=== PATIENT | male | born 1955 ===

== ENCOUNTER 2018-07-05 14:06 | Inpatient (IN) | payer SELFPAY ==
--- NOTE | 2018-07-05 15:22 | ED PDOC ---
HPI: CCC, URI, Sore Throat Time Seen by Provider: 07/05/18 15:07 Chief Complaint (Nursing): Shortness Of Breath Chief Complaint (Provider): Sore throat History Per: Patient, Family, Supervisor [employer] (Son (preferrred)) History/Exam Limitations: no limitations Additional Complaint(s): Pt reports sore throat X 10 days, associated with SOB when standing, was given ? medication for 10 days by PMD without relief. Denies CP, fever, cough, palpitations. PMD: Dr. Weber Past Medical History Reviewed: Nursing Documentation, Vital Signs Vital Signs: Last Vital Signs Temp 98.7 F 07/05/18 14:26 Pulse 95 H 07/05/18 15:12 Resp 20 07/05/18 15:12 BP 120/64 07/05/18 15:12 Pulse Ox 100 07/05/18 15:15 - Medical History PMH: No Chronic Diseases - Family History Family History: States: Unknown Family Hx - Living Arrangements Living Arrangements: With Family - Social History Current smoker - smoking cessation education provided: No Alcohol: None - Allergies Allergies/Adverse Reactions: Allergies Allergy/AdvReac Type Severity Reaction Status Date / Time No Known Allergies Allergy Verified 07/05/18 14:26 Review of Systems Constitutional: Negative for: Fever, Chills ENT: Positive for: Throat Pain. Negative for: Throat Swelling Cardiovascular: Negative for: Chest Pain, Palpitations Respiratory: Positive for: Shortness of Breath. Negative for: Cough Gastrointestinal: Negative for: Nausea, Vomiting, Abdominal Pain, Diarrhea Skin: Negative for: Rash, Lesions Neurological: Negative for: Headache, Dizziness Physical Exam - Reviewed Nursing Documentation Reviewed: Yes Vital Signs Reviewed: Yes - Physical Exam Appears: Positive for: Well, No Acute Distress (Speaking full sentences) Head Exam: Positive for: ATRAUMATIC, NORMAL INSPECTION Skin: Positive for: Warm, Dry, Pallor Eye Exam: Positive for: Normal appearance, EOMI, PERRL ENT: Positive for: Pharynx Is (Clear). Negative for: Sinus Pain/Drainage, Pharyngeal Erythema, Tonsillar Exudate, Tonsillar Swelling Neck: Positive for: Normal, Painless ROM, Supple Cardiovascular/Chest: Positive for: Regular Rate, Rhythm Respiratory: Positive for: Normal Breath Sounds. Negative for: Rales, Rhonchi, Wheezing Gastrointestinal/Abdominal: Positive for: Normal Exam Back: Positive for: Normal Inspection Rectal: Positive for: Stool Is Heme: (Pending), Other (Welder Machine Operator: Espinoza Valdez). Negative for: Black Stool, Blood Streaked Stool, Hemorrhoids, Tenderness Extremity: Positive for: Normal ROM Neurological/Psych: Positive for: Awake, Alert, Oriented - Laboratory Results Result Diagrams: 07/07/18 05:00 07/07/18 06:31 - ECG Interpretation Of ECG: ST @ 102, TWI inferiorlaterally (no old EKG to compare). O2 Sat by Pulse Oximetry: 100 Pulse Ox Interpretation: Normal Medical Decision Making Medical Decision Makin yo male with sore throat and SOB. - labs - EKG - CXR Accession No. : [id number] Patient Name / ID : TATIANA MANTILLA / [id number] Exam Date : 07/05/2018 15:36:58 ( Approved ) Study Comment : Sex / Age : M / 62Y Creator : Tung López MD Dictator : Tung López MD Hvac Engineering Technician : Reducer : Tung López MD Approver2 : Report Date : 07/05/2018 16:09:15 My Comment : Date of service: 07/05/2018 HISTORY: SOB COMPARISON: No prior. TECHNIQUE: Chest PA and lateral views FINDINGS: LUNGS: No pulmonary infiltrate. There is a calcified granuloma in the mid lateral left hemithorax. PLEURA: There is blunting of the costophrenic sulcus bilaterally although the costophrenic angles appear clear. Probable small bilateral pleural effusion. No pneumothorax. CARDIOVASCULAR: No aortic atherosclerotic calcification present. Normal cardiac size. No pulmonary vascular congestion. OSSEOUS STRUCTURES: No significant abnormalities. VISUALIZED UPPER ABDOMEN: Normal. OTHER FINDINGS: None. IMPRESSION: Probable small bilateral pleural effusion. Incidental calcified old granuloma in left lung 17:25 Low Hb noted. Consent for blood transfusion obtained using [employer] trust manager assistant #[id number]. Pt states he has been having intermittent rectal bleeding, none at this time, denies abdominal pain. Stool guaiac obtained. Disposition - Clinical Impression Clinical Impression: Symptomatic anemia - Disposition Disposition Time: 19:44 Condition: STABLE - Pt Status Changed To: Hospital Disposition Of: Inpatient - Admit Certification Admit to Inpatient:: After my assessment, the patient will require hospitalization for at least two midnights. This is because of the severity of symptoms shown, intensity of services needed, and/or the medical risk in this patient being treated as an outpatient. - POA Present On Arrival: None
[2018-07-05 16:11] LABS: ALB/GLOB RATIO 1.3 (1.0-2.1); ALBUMIN 3.5 g/dL (3.5-5.0); ALT/SGPT 27 U/L (21-72); AST/SGOT 22 U/L (17-59); BLOOD UREA NITROGEN 18 mg/dl (9-20); CALCIUM 8.6 mg/dL (8.4-10.2); GFR NON-AFRICAN AMERICAN > 60
--- NOTE | 2018-07-05 16:12 | RAD ---
Date of service: 07/05/2018 HISTORY: SOB COMPARISON: No prior. TECHNIQUE: Chest PA and lateral views FINDINGS: LUNGS: No pulmonary infiltrate. There is a calcified granuloma in the mid lateral left hemithorax. PLEURA: There is blunting of the costophrenic sulcus bilaterally although the costophrenic angles appear clear. Probable small bilateral pleural effusion. No pneumothorax. CARDIOVASCULAR: No aortic atherosclerotic calcification present. Normal cardiac size. No pulmonary vascular congestion. OSSEOUS STRUCTURES: No significant abnormalities. VISUALIZED UPPER ABDOMEN: Normal. OTHER FINDINGS: None. IMPRESSION: Probable small bilateral pleural effusion. Incidental calcified old granuloma in left lung
[2018-07-05 16:41] LABS: PROTHROMBIN TIME 11.3 Seconds (9.8-13.1)
[2018-07-05 16:44] LABS: BASO % 0.3 % (0.0-2.0); LYMPH # 0.6 K/uL (1.0-4.3); MEAN CELL VOLUME 70.6 fl (80.0-94.0); MEAN CORPUSCULAR HEMOGLOBIN 21.1 pg (27.0-31.0); MEAN CORPUSCULAR HGB CONC 29.8 g/dL (33.0-37.0); MEAN PLATELET VOLUME 8.8 fl (7.2-11.7); MONO # 1.1 K/uL (0.0-0.8); NEUT # 10.8 K/uL (1.8-7.0); NEUT % 85.7 % (50.0-75.0); NRBC % 1.6 % (0.0-0.0); PLATELET COUNT 384 K/uL (130-400); RBC 2.06 Mil/uL (4.40-5.90); RED CELL DISTRIBUTION WIDTH 18.4 % (11.5-14.5); WHITE BLOOD COUNT 12.6 K/uL (4.8-10.8)
[2018-07-05 16:51] LABS: HEMOGLOBIN 4.3 g/dL (12.0-18.0)
[2018-07-05] MEDS ORDERED: Sodium Chloride 0.9% 50 ML IV ONE (18:15)
[2018-07-05] MEDS ORDERED: Iodixanol 320 mg/ml 50 ml Sol IV ONE (18:15)
[2018-07-05 18:27] LABS: B-TYPE NATRIURETIC PEPTIDE 103 pg/ml (0-900)
[2018-07-05 20:23] LABS: ANISOCYTOSIS MARKED; BANDS 4 % (0-2); LYMPHOCYTE 7 % (20-50); MICROCYTOSIS MODERATE; MONOCYTE 5 % (0-10); NEUTROPHIL 84 % (42-75); PLATELET ESTIMATE NORMAL (NORMAL); POIKILOCYTOSIS MARKED; TOTAL CELLS COUNTED 100
[2018-07-05 20:24] LABS: HYPOCHROMIC MODERATE; OVALOCYTES SLIGHT; POLYCHROMIC MODERATE; SCHISTOCYTES SLIGHT; TEARDROP CELLS SLIGHT
--- NOTE | 2018-07-05 21:10 | CP.PCM.HP ---
<Alicia Rm - Last Filed: 07/05/18 23:41> History of Present Illness - History of Present Illness History of Present Illness: This is 62 y/o M with PMH of HTN admitted to [facility] for evaluation and treatment of Acute symptomatic anemia and elevated D.dimer. Patient comes to the ED c/o 10 days history of sore throat, worsening dyspnea on exertion, weakness and dizziness. Patient reports on and off blood with stool, denies any palpitations, blurred vision, chest pain, abdominal pain, fever, hemoptysis, hematuria or urinary symptoms. Patient reports no sick contact or recent travel. [id number] PMH: HTN PSH: Denies ALlg: NKDA Meds: for HTN. Unknown SH: Social alcohol use, denies any smoking or illicit drug use FH: + colon cancer: mother, denies any heart disease or stroke ROS: As per HPI ER Course: Afebrile, HR 103, 139/73, RR 20, Spo2 97% CBC: 12.6>4.3/14.5<384 CMP: WNL D.dimer: 669 Negative influenza and strep CT abdo/pelvis: pending CT angio Chest: pending EKG: Sinus Tachy CXR: Prob small b/l pleural effusion Pending FOBT Present on Admission - Present on Admission Any Indicators Present on Admission: No History of DVT/PE: No History of Uncontrolled Diabetes: No Review of Systems - Constitutional Constitutional: absent: Fever, Headache, Night Sweats - EENT Eyes: absent: Blurred Vision Ears: absent: Decreased Hearing Nose/Mouth/Throat: Sore Throat - Cardiovascular Cardiovascular: Dyspnea on Exertion. absent: Chest Pain, Palpitations, Syncope - Respiratory Respiratory: Dyspnea on Exertion. absent: Cough, Hemoptysis, Wheezing - Genitourinary Genitourinary: absent: Hematuria, Urinary Incontinence - Musculoskeletal Musculoskeletal: absent: Abnormal Gait - Neurological Neurological: Dizziness. absent: Headaches, Syncope Past Patient History - Past Social History Alcohol: None - CARDIAC Hx Hypertension: Yes - PSYCHIATRIC Hx Substance Use: No - SURGICAL HISTORY Hx Surgeries: No Meds Allergies/Adverse Reactions: Allergies Allergy/AdvReac Type Severity Reaction Status Date / Time No Known Allergies Allergy Verified 07/05/18 14:26 Physical Exam - Constitutional Appears: No Acute Distress - Head Exam Head Exam: ATRAUMATIC, NORMAL INSPECTION, NORMOCEPHALIC - Eye Exam Eye Exam: EOMI, Normal appearance, PERRL. absent: Conjunctival injection, Nystagmus Pupil Exam: NORMAL ACCOMODATION, PERRL - ENT Exam ENT Exam: Mucous Membranes Moist - Neck Exam Neck exam: Positive for: Normal Inspection - Respiratory Exam Respiratory Exam: Clear to Auscultation Bilateral. absent: Accessory Muscle Use, Chest Wall Tenderness, Decreased Breath Sounds, Prolonged Expiratory Phase, Rales, Wheezes, Respiratory Distress, NORMAL BREATHING PATTERN - Cardiovascular Exam Cardiovascular Exam: Tachycardia, REGULAR RHYTHM, +S1, +S2 - GI/Abdominal Exam GI & Abdominal Exam: Normal Bowel Sounds, Soft. absent: Distended, Guarding, Rebound, Rigid, Tenderness - Rectal Exam Rectal Exam: NORMAL INSPECTION - Extremities Exam Extremities exam: Positive for: normal capillary refill, normal inspection. Negative for: tenderness - Back Exam Back exam: NORMAL INSPECTION. absent: CVA tenderness (L), CVA tenderness (R) - Neurological Exam Neurological exam: Alert, CN II-XII Intact, Oriented x3 - Psychiatric Exam Psychiatric exam: Normal Affect - Skin Skin Exam: Dry, Intact, Normal Color, Warm Results - Vital Signs Recent Vital Signs: Last Vital Signs Temp 98.4 F 07/05/18 20:45 Pulse 85 07/05/18 20:45 Resp 17 07/05/18 20:45 BP 130/75 07/05/18 20:45 Pulse Ox 100 07/05/18 20:45 - Labs Result Diagrams: 07/05/18 15:35 07/05/18 15:35 Labs: Laboratory Results - last 24 hr 07/05/18 07/05/18 07/05/18 15:35 15:35 15:35 WBC 12.6 H RBC 2.06 L Hgb 4.3 L* Hct 14.5 L MCV 70.6 L MCH 21.1 L MCHC 29.8 L RDW 18.4 H Plt Count 384 MPV 8.8 Neut % (Auto) 85.7 H Lymph % (Auto) 5.0 L York % (Auto) 9.0 Eos % (Auto) 0.0 Baso % (Auto) 0.3 Neut # (Auto) 10.8 H Lymph # (Auto) 0.6 L [place] # (Auto) 1.1 H Eos # (Auto) 0.0 Baso # (Auto) 0.0 Neutrophils % (Manual) 84 H Band Neutrophils % 4 H Lymphocytes % (Manual) 7 L Monocytes % (Manual) 5 Platelet Estimate Normal Polychromasia Moderate Hypochromasia (manual) Moderate Poikilocytosis (manual Marked Anisocytosis (manual) Marked Microcytosis (manual) Moderate Tear Drop Cells Slight Ovalocytes Slight Acanthocytes (Spur) Slight Schistocytes Slight PT INR APTT D-Dimer, Quantitative Sodium 136 Potassium 4.3 Chloride 104 Carbon Dioxide 24 Anion Gap 12 BUN 18 Creatinine 1.1 Est GFR ( Amer) > 60 Est GFR (Non-Af Amer) > 60 Random Glucose 108 Calcium 8.6 Total Bilirubin 0.2 AST 22 ALT 27 Alkaline Phosphatase 72 Troponin I < 0.0120 NT-Pro-B Natriuret Pep 103 Total Protein 6.2 L Albumin 3.5 Globulin 2.7 Albumin/Globulin Ratio 1.3 Stool Occult Blood Influenza Typ A,B (EIA) Grp A Beta Strep Ag Blood Type O POSITIVE Blood Type Confirm Antibody Screen Negative Crossmatch See Detail BBK History Checked No verified bt 07/05/18 07/05/18 07/05/18 15:35 15:35 16:23 WBC RBC Hgb Hct MCV MCH MCHC RDW Plt Count MPV Neut % (Auto) Lymph % (Auto) York % (Auto) Eos % (Auto) Baso % (Auto) Neut # (Auto) Lymph # (Auto) [place] # (Auto) Eos # (Auto) Baso # (Auto) Neutrophils % (Manual) Band Neutrophils % Lymphocytes % (Manual) Monocytes % (Manual) Platelet Estimate Polychromasia Hypochromasia (manual) Poikilocytosis (manual Anisocytosis (manual) Microcytosis (manual) Tear Drop Cells Ovalocytes Acanthocytes (Spur) Schistocytes PT 11.3 INR 1.0 APTT 23.0 L D-Dimer, Quantitative 669 H Sodium Potassium Chloride Carbon Dioxide Anion Gap BUN Creatinine Est GFR ( Amer) Est GFR (Non-Af Amer) Random Glucose Calcium Total Bilirubin AST ALT Alkaline Phosphatase Troponin I NT-Pro-B Natriuret Pep Total Protein Albumin Globulin Albumin/Globulin Ratio Stool Occult Blood Influenza Typ A,B (EIA) Negative for flu a/b Grp A Beta Strep Ag Negative Blood Type Blood Type Confirm Antibody Screen Crossmatch BBK History Checked 07/05/18 07/05/18 18:57 19:10 WBC RBC Hgb Hct MCV MCH MCHC RDW Plt Count MPV Neut % (Auto) Lymph % (Auto) [place] % (Auto) Eos % (Auto) Baso % (Auto) Neut # (Auto) Lymph # (Auto) [place] # (Auto) Eos # (Auto) Baso # (Auto) Neutrophils % (Manual) Band Neutrophils % Lymphocytes % (Manual) Monocytes % (Manual) Platelet Estimate Polychromasia Hypochromasia (manual) Poikilocytosis (manual Anisocytosis (manual) Microcytosis (manual) Tear Drop Cells Ovalocytes Acanthocytes (Spur) Schistocytes PT INR APTT D-Dimer, Quantitative Sodium Potassium Chloride Carbon Dioxide Anion Gap BUN Creatinine Est GFR ( Amer) Est GFR (Non-Af Amer) Random Glucose Calcium Total Bilirubin AST ALT Alkaline Phosphatase Troponin I NT-Pro-B Natriuret Pep Total Protein Albumin Globulin Albumin/Globulin Ratio Stool Occult Blood TNP Influenza Typ A,B (EIA) Grp A Beta Strep Ag Blood Type Blood Type Confirm O POSITIVE Antibody Screen Crossmatch BBK History Checked Assessment & Plan - Assessment and Plan (Free Text) Assessment: A/P: 62 y/o M with PMH of HTN admitted to [facility] for evaluation and treatment of Acute symptomatic anemia and elevated D.dimer. Acute symptomatic Severe Anemia likely 2/2 GI bleed - Consult GI, follow up recommendations - C/w IV fluids 150mls/hr - Transfusion/pRBCs 4 U - Protonix 40mg IV Q12H - Pending FOBT - Pending CT abdo/Pelvis - NPO diet - F/u AM labs Elevated D.Dimer - Denies recent surgery or inactivities - EKG: Sinus Tachy - CXR: Prob small b/l pleural effusion - F/u pending CT Angio DVT PPX - SCD only due to GI bleed <Asad Salas D - Last Filed: 07/06/18 10:09> Results - Vital Signs Recent Vital Signs: Last Vital Signs Temp 97.5 F L 07/06/18 08:46 Pulse 75 07/06/18 08:46 Resp 18 07/06/18 08:46 BP 108/62 07/06/18 08:46 Pulse Ox 95 07/06/18 08:00 - Labs Result Diagrams: 07/05/18 15:35 04/01/19 15:35 Labs: Laboratory Results - last 24 hr 07/05/18 07/05/18 07/05/18 15:35 15:35 15:35 WBC 12.6 H RBC 2.06 L Hgb 4.3 L* Hct 14.5 L MCV 70.6 L MCH 21.1 L MCHC 29.8 L RDW 18.4 H Plt Count 384 MPV 8.8 Neut % (Auto) 85.7 H Lymph % (Auto) 5.0 L York % (Auto) 9.0 Eos % (Auto) 0.0 Baso % (Auto) 0.3 Neut # (Auto) 10.8 H Lymph # (Auto) 0.6 L [place] # (Auto) 1.1 H Eos # (Auto) 0.0 Baso # (Auto) 0.0 Neutrophils % (Manual) 84 H Band Neutrophils % 4 H Lymphocytes % (Manual) 7 L Monocytes % (Manual) 5 Platelet Estimate Normal Polychromasia Moderate Hypochromasia (manual) Moderate Poikilocytosis (manual Marked Anisocytosis (manual) Marked Microcytosis (manual) Moderate Tear Drop Cells Slight Ovalocytes Slight Acanthocytes (Spur) Slight Schistocytes Slight PT INR APTT D-Dimer, Quantitative Sodium 136 Potassium 4.3 Chloride 104 Carbon Dioxide 24 Anion Gap 12 BUN 18 Creatinine 1.1 Est GFR ( Amer) > 60 Est GFR (Non-Af Amer) > 60 Random Glucose 108 Calcium 8.6 Total Bilirubin 0.2 AST 22 ALT 27 Alkaline Phosphatase 72 Troponin I < 0.0120 NT-Pro-B Natriuret Pep 103 Total Protein 6.2 L Albumin 3.5 Globulin 2.7 Albumin/Globulin Ratio 1.3 Stool Occult Blood Influenza Typ A,B (EIA) Grp A Beta Strep Ag Blood Type O POSITIVE Blood Type Confirm Antibody Screen Negative Crossmatch See Detail BBK History Checked No verified bt 07/05/18 07/05/18 07/05/18 15:35 15:35 16:23 WBC RBC Hgb Hct MCV MCH MCHC RDW Plt Count MPV Neut % (Auto) Lymph % (Auto) [place] % (Auto) Eos % (Auto) Baso % (Auto) Neut # (Auto) Lymph # (Auto) [place] # (Auto) Eos # (Auto) Baso # (Auto) Neutrophils % (Manual) Band Neutrophils % Lymphocytes % (Manual) Monocytes % (Manual) Platelet Estimate Polychromasia Hypochromasia (manual) Poikilocytosis (manual Anisocytosis (manual) Microcytosis (manual) Tear Drop Cells Ovalocytes Acanthocytes (Spur) Schistocytes PT 11.3 INR 1.0 APTT 23.0 L D-Dimer, Quantitative 669 H Sodium Potassium Chloride Carbon Dioxide Anion Gap BUN Creatinine Est GFR ( Amer) Est GFR (Non-Af Amer) Random Glucose Calcium Total Bilirubin AST ALT Alkaline Phosphatase Troponin I NT-Pro-B Natriuret Pep Total Protein Albumin Globulin Albumin/Globulin Ratio Stool Occult Blood Influenza Typ A,B (EIA) Negative for flu a/b Grp A Beta Strep Ag Negative Blood Type Blood Type Confirm Antibody Screen Crossmatch BBK History Checked 07/05/18 07/05/18 18:57 19:10 WBC RBC Hgb Hct MCV MCH MCHC RDW Plt Count MPV Neut % (Auto) Lymph % (Auto) [place] % (Auto) Eos % (Auto) Baso % (Auto) Neut # (Auto) Lymph # (Auto) [place] # (Auto) Eos # (Auto) Baso # (Auto) Neutrophils % (Manual) Band Neutrophils % Lymphocytes % (Manual) Monocytes % (Manual) Platelet Estimate Polychromasia Hypochromasia (manual) Poikilocytosis (manual Anisocytosis (manual) Microcytosis (manual) Tear Drop Cells Ovalocytes Acanthocytes (Spur) Schistocytes PT INR APTT D-Dimer, Quantitative Sodium Potassium Chloride Carbon Dioxide Anion Gap BUN Creatinine Est GFR ( Amer) Est GFR (Non-Af Amer) Random Glucose Calcium Total Bilirubin AST ALT Alkaline Phosphatase Troponin I NT-Pro-B Natriuret Pep Total Protein Albumin Globulin Albumin/Globulin Ratio Stool Occult Blood TNP Influenza Typ A,B (EIA) Grp A Beta Strep Ag Blood Type Blood Type Confirm O POSITIVE Antibody Screen Crossmatch BBK History Checked Attending/Attestation - Attestation I have personally seen and examined this patient.: Yes I have fully participated in the care of the patient.: Yes I have reviewed all pertinent clinical information: Yes Notes (Text): 07/06/18 10:08 Patient seen and examined with resident. Case discussed and agreed with assessment and plan of management.
[2018-07-05] MEDS: Sodium Chloride 0.9% 1,000 ML IV SCH (22:47)
[2018-07-06] MEDS: Sodium Chloride 0.9% 1,000 ML IV SCH ×3 (05:56→22:55)
[2018-07-06] MEDS ORDERED: Pneumococcal 23-Valent Vaccine IM ONE (06:00)
[2018-07-06] MEDS ORDERED: Influenza Vaccine 60 mcg/0.5 mL SYR (4YR UP) IM ONE (06:00)
--- NOTE | 2018-07-06 09:31 | CT ---
Date of service: 07/05/2018 PROCEDURE: CT Abdomen and Pelvis with contrast HISTORY: Rectal bleeding COMPARISON: None. TECHNIQUE: Following the intravenous administration of iodinated contrast material, a CT examination of the abdomen and pelvis was performed from the domes of the diaphragms to the symphysis pubis with reformatted datasets provided in axial, sagittal and coronal planes. Oral contrast was not administered as per referring physician request. Contrast dose: Visipaque 320, 95 cc Radiation dose: Total exam DLP = 349.91 mGy-cm. This CT exam was performed using one or more of the following dose reduction techniques: Automated exposure control, adjustment of the mA and/or kV according to patient size, and/or use of iterative reconstruction technique. FINDINGS: LOWER THORAX: Unremarkable. LIVER: Unremarkable. No gross lesion or ductal dilatation. GALLBLADDER AND BILE DUCTS: Unremarkable. PANCREAS: Unremarkable. No gross lesion or ductal dilatation. SPLEEN: Unremarkable. ADRENALS: Unremarkable. No mass. KIDNEYS AND URETERS: Multiple right renal cysts are identified including 1.9 x 1.6 cm simple cyst at the midpole right kidney laterally, in a 2.5 x 12.0 cm cyst at the medial lower pole the sub cm lucency at the mid to lower pole seen laterally, too small to characterize. There is an exophytic lucency measuring 23 Hounsfield units fluid to the lateral lower pole measuring 1.3 x 1.1 cm which is indeterminate and could reflect soft tissue rather than a complex/proteinaceous cyst. VASCULATURE: Unremarkable. No aortic aneurysm. No aortic atherosclerotic calcification or mural plaque present. BOWEL: Stomach is only partially distended with mural thickening difficult to exclude. Large-bowel is mildly distended with retained gas and fecal material with some small bowel loops in the central abdomen distended up to 3.0 cm possibly reflecting mild early ileus with obstruction not favored. Segmental enteritis is a limited possibility though no mesenteric reactive changes are appreciated or definitive small bowel mural thickening identified. Colonic diverticular changes scattered throughout the colon but are nonacute. APPENDIX: Normal appendix. PERITONEUM: Unremarkable. No free fluid. No free air. LYMPH NODES: Unremarkable. No enlarged lymph nodes. BLADDER: Mildly distended but otherwise unremarkable appearing. REPRODUCTIVE: Mild prostate gland enlargement. BONES: Limited degenerative grade 1 spondylolisthesis with L4 slightly posterior to L5. No spondylolysis identified throughout. OTHER FINDINGS: None. IMPRESSION: 1. There is distention of a few central small bowel loops is in a pattern that may reflect developing ileus. No large or small bowel collapse evident. Enteritis is a possibility but is not favored. Clinically correlate further. 2. Multiple right renal cysts are identified. A lower pole lucency measuring 1.3 cm identified potentially reflecting complex cyst though soft tissue lesion is not excluded. Follow-up ultrasound is advised for added characterization or CT of the abdomen pelvis with and without contrast. 3. Mild prostate gland enlargement. Discordant preliminary report provided by Page Mage 07/05/2018 7:42 p.m. with respect to renal lower pole lesion and also with respect to potential ileus of small bowel. Findings discussed with Dr. Colon with written down and read back verification 07/06/2018 9:25 a.m..
--- NOTE | 2018-07-06 09:58 | CT ---
Date of service: 07/05/2018 PROCEDURE: CT Chest with contrast (Pulmonary Angiogram) HISTORY: SOB COMPARISON: None available. TECHNIQUE: Axial computed tomography images were obtained of the chest in the pulmonary arterial phase of enhancement. Coronal and sagittal reformatted images were created and reviewed. Intravenous contrast dose: Visipaque 320, 95 cc (same injection of contrast for both this chest CT as well as a separate abdomen and pelvis CT performed immediately after the chest CT angiogram 07/05/2018. No extra contrast dose administered.) Radiation dose: Total exam DLP = 289.93 mGy-cm. This CT exam was performed using one or more of the following dose reduction techniques: Automated exposure control, adjustment of the mA and/or kV according to patient size, and/or use of iterative reconstruction technique. FINDINGS: PULMONARY ARTERIES: Limited pulmonary emboli identified at subsegmental branches of the bilateral lower and upper lobes infrequently. The main pulmonary artery and proximal segments of the right and left pulmonary arteries are are normal in caliber and enhancement with no central or large pulmonary embolus appreciable. Normal right to left ventricular volumes appreciated. AORTA: No acute findings. No thoracic aortic aneurysm. Calcific atherosclerotic changes are seen related to the thoracic aorta. LUNGS: A 7 mm calcified granuloma is appreciated at the left upper lobe with no additional nodules appreciated bilaterally. No dominant mass or pulmonary consolidation. PLEURAL SPACES: Unremarkable. No effusion or pneumothorax. HEART: Mild cardiomegaly. No significant pericardial effusion. LYMPH NODES: No lymphadenopathy. BONES, CHEST WALL: Unremarkable. No fracture or destructive lesion OTHER FINDINGS: Abdomen evaluated in separate abdomen and pelvis CT exam also performed 07/05/2018. IMPRESSION: 1. There are few small subsegmental pulmonary emboli identified at the bilateral upper and lower lobes. No large or central pulmonary embolus appreciable. 2. No definite pattern of pulmonary infarct or other consolidation evident. No pleural or pericardial effusion. Normal caliber central pulmonary arteries and normal right to left ventricular volumes identified. Mild cardiomegaly noted. Discordant with [facility] preliminary report 07/05/2018, 7:25 p.m., regarding pulmonary emboli as discussed in impression 1. Findings discussed with Dr. Colon with written down and read back verification 07/06/2018, 9:42 a.m..
--- NOTE | 2018-07-06 11:37 | CARD ---
APPROVED REPORT Date of service: 07/05/2018 EKG Measurement Heart [id number] <Conclusion> Sinus tachycardia ST & T wave abnormality, consider inferolateral ischemia Abnormal ECG
[2018-07-06 11:44] LABS: BASO # 0.1 K/uL (0.0-0.2); BASO % 0.9 % (0.0-2.0); EOS % 0.3 % (0.0-4.0); HEMOGLOBIN 8.6 g/dL (12.0-18.0); LYMPH # 1.6 K/uL (1.0-4.3); LYMPH % 15.2 % (20.0-40.0); MEAN CORPUSCULAR HEMOGLOBIN 25.1 pg (27.0-31.0); MEAN CORPUSCULAR HGB CONC 32.1 g/dL (33.0-37.0); MEAN PLATELET VOLUME 9.3 fl (7.2-11.7); MONO % 10.2 % (0.0-10.0); NEUT # 7.6 K/uL (1.8-7.0); NEUT % 73.4 % (50.0-75.0); NRBC % 0.3 % (0.0-0.0); RBC 3.44 Mil/uL (4.40-5.90); RED CELL DISTRIBUTION WIDTH 20.3 % (11.5-14.5); WHITE BLOOD COUNT 10.3 K/uL (4.8-10.8)
[2018-07-06 11:55] LABS: IRON 66 ug/dL (49-181)
[2018-07-06 12:04] LABS: % IRON SATURATION 16 % (20-55); TOTAL IRON BINDING CAPACITY 412 ug/dL (250-450)
[2018-07-06 12:06] LABS: BLOOD UREA NITROGEN 14 mg/dl (9-20); CALCIUM 8.7 mg/dL (8.4-10.2); GFR NON-AFRICAN AMERICAN > 60
--- NOTE | 2018-07-06 12:11 | CP.PCM.PN ---
<Ariadna Sethi - Last Filed: 07/06/18 16:30> Subjective - Date & Time of Evaluation Date of Evaluation: 07/06/18 Time of Evaluation: 10:01 - Subjective Subjective: Patient was seen and examined this AM at bedside. Pt reports that he is feeling better. He denied any f/c/lightheadedness, cp or sob. Objective - Vital Signs/Intake and Output Vital Signs (last 24 hours): Temp Pulse Resp BP Pulse Ox 97.5 F L 75 18 108/62 95 07/06/18 08:46 07/06/18 08:46 07/06/18 08:46 07/06/18 08:46 07/06/18 08:00 Intake and Output: 07/06/18 07/06/18 06:59 18:59 Intake Total 650 381 Balance 650 381 - Medications Medications: Current Medications Sodium Chloride (Sodium Chloride 0.9%) 1,000 mls @ 150 mls/hr IV .Q6H40M [facility] Last Admin: 07/06/18 05:56 Dose: Not Given Pantoprazole Sodium (Protonix Inj) 40 mg IVP Q12 [facility] Last Admin: 07/06/18 09:45 Dose: 40 mg - Labs Labs: 07/06/18 11:17 07/06/18 11:17 PT 11.3 Seconds (9.8-13.1) 07/05/18 16:23 INR 1.0 07/05/18 16:23 APTT 23.0 Seconds (25.6-37.1) L 07/05/18 16:23 - Constitutional Appears: Non-toxic - Head Exam Head Exam: ATRAUMATIC, NORMAL INSPECTION - Eye Exam Eye Exam: EOMI - ENT Exam ENT Exam: Mucous Membranes Dry - Respiratory Exam Respiratory Exam: Clear to Ausculation Bilateral. absent: Rhonchi, Wheezes, Respiratory Distress - Cardiovascular Exam Cardiovascular Exam: REGULAR RHYTHM, +S1, +S2 - GI/Abdominal Exam GI & Abdominal Exam: Soft, Normal Bowel Sounds. absent: Guarding, Rigid, Tenderness - Extremities Exam Extremities Exam: Normal Inspection. absent: Calf Tenderness - Neurological Exam Neurological Exam: Alert, Awake, Oriented x3 - Psychiatric Exam Psychiatric exam: Normal Mood - Skin Skin Exam: Dry, Intact Assessment and Plan - Assessment and Plan (Free Text) Assessment: 62 y/o M with PMH of HTN admitted to to telemetry for management of severe anemia and elevated D.dimer. 1. Severe Anemia (source unknown) -Dr. Ruano consulted. -Hgb: 4.3; increased to 8.6 s/p transfusion with 4 prbc. -1 FFp ordered as recommended by Dr. Ruano. -Abd CT showing few central small bowel loops in a pattern that may reflect developing ileus. No large or small bowel collapse. Enteritis possible but not favored. Dr. Aly consulted. GI source unlikely. -Dr. Ruano consulted with recommendations appreciated (1 FFP & FOBT QD x 3 days) - & 1 FFp - C/w Protonix 40mg IV Q12H - FOBT improperly collected. FU repeat. -FU iron studies -Liquid diet 2. Elevated D.Dimer (Denies recent surgery or inactivities ) -Pulmonary consult with Dr. Amor. FU recommendations -669 - EKG: Sinus Tachy with rate of 102 bpm (recent Pulse-80's), BP- 118-113 systolic) - CXR: Prob small b/l pleural effusion - Chest CT angio with few small subsegmental pulmonary emboli identified b/l upper and lower lobes. -FU echo 3. HTN (controlled, not on any meds) -Cont to monitor vitals 4. Renal cysts -Multiple right renal cysts on abd CT. -FU renal ultrasound 5.DVT PPX - SCD only due severe anemia with unknown cause <Asad Salas D - Last Filed: 07/06/18 17:25> Objective - Vital Signs/Intake and Output Vital Signs (last 24 hours): Temp Pulse Resp BP Pulse Ox 99 F 83 16 141/85 98 07/06/18 16:04 07/06/18 16:04 07/06/18 16:04 07/06/18 16:04 07/06/18 16:04 Intake and Output: 07/06/18 07/06/18 06:59 18:59 Intake Total 650 381 Balance 650 381 - Medications Medications: Current Medications Amlodipine Besylate (Norvasc) 10 mg PO DAILY [facility] Sodium Chloride (Sodium Chloride 0.9%) 1,000 mls @ 150 mls/hr IV .Q6H40M [facility] Last Admin: 07/06/18 14:10 Dose: 150 mls/hr Loratadine (Claritin) 10 mg PO DAILY [facility] Pantoprazole Sodium (Protonix Inj) 40 mg IVP Q12 [facility] Last Admin: 07/06/18 09:45 Dose: 40 mg - Labs Labs: 07/06/18 11:17 07/06/18 11:17 PT 11.3 Seconds (9.8-13.1) 07/05/18 16:23 INR 1.0 07/05/18 16:23 APTT 23.0 Seconds (25.6-37.1) L 07/05/18 16:23 Attending/Attestation - Attestation I have personally seen and examined this patient.: Yes I have fully participated in the care of the patient.: Yes I have reviewed all pertinent clinical information, including history, physical exam and plan: Yes Notes (Text): 07/06/18 17:21 Patient seen and examined with resident. Case discussed and agreed with assessment and plan. SOB resolved with blood transfusion of 4 units. Had subsegmental emboli on both lungs which do not need anti-coagulation. Needed fur ther work ups for severe anemia which was not secondary to GI blood loss as per Dr Garcia.
--- NOTE | 2018-07-06 13:18 | US ---
Date of service: 07/06/2018 PROCEDURE: Ultrasound of the Kidneys HISTORY: multiple right renal cysts COMPARISON: CT abdomen and pelvis from 07/05/2018. TECHNIQUE: Sonogram of the kidneys. FINDINGS: RIGHT KIDNEY: Measures: 11.0 cm. Normal in size, contour and echogenicity. No stone, solid mass lesion or hydronephrosis visualized. There are 3 simple cysts, the largest in the upper pole measures 2.0 x 1.6 x 1.8 cm. Additionally, there is a 1.4 x 1.5 x 1.2 cm hypoechoic lesion with internal echoes features exophytic in the lower pole and likely corresponds to the questioned lesion on CT examination. LEFT KIDNEY: Measures: 10.6 cm. Normal in size, contour and echogenicity. No stone, solid mass lesion or hydronephrosis visualized. There is a solitary 1.2 x 1.0 x 1.5 cm simple cyst in the upper pole. OTHER FINDINGS: None. IMPRESSION: No hydronephrosis or nephrolithiasis. Simple cysts in both kidneys, the largest in the right upper pole measures 2.0 cm. 1.4 x 1.5 x 1.2 cm exophytic lesion in the right lower pole likely corresponds to a complicated/hemorrhagic cyst. Follow-up ultrasound in 3-6 month interval is recommended to assess stability/resolution. Simple cysts in both kidneys, the largest in the right upper pole measures 2.0 x 1.6 x 1.8 cm.
--- NOTE | 2018-07-06 14:46 | US ---
Date of service: 07/06/2018 PROCEDURE: Bilateral lower extremity venous duplex Doppler. HISTORY: Elevated d.dimer COMPARISON: None available. TECHNIQUE: Bilateral common femoral, superficial femoral, popliteal and posterior tibial veins were evaluated. Flow was assessed with color Doppler, compressibility, assessment of phasic flow and augmentation response. FINDINGS: COMMON FEMORAL VEIN: Right CFV: Unremarkable. Left CFV: Unremarkable. SUPERFICIAL FEMORAL VEIN: Right SFV: Unremarkable. Left SFV: Unremarkable. POPLITEAL VEIN: Right Popliteal: Unremarkable. Left Popliteal: Unremarkable. POSTERIOR TIBIAL VEIN: Right PTV: Unremarkable. Left PTV: Unremarkable. OTHER FINDINGS: None. IMPRESSION: No evidence of deep venous thrombosis.
--- NOTE | 2018-07-06 15:40 | CARD ---
APPROVED REPORT Date of service: 07/06/2018 EXAM: Two-dimensional and M-mode echocardiogram with Doppler and color Doppler. Other Information Quality : GoodRhythm : NSR INDICATION Pulmonary Embolism 2D DIMENSIONS IVSd0.99 (0.7-1.1cm)LVDd4.81 (3.9-5.9cm) LVOT Diameter1.95 (1.8-2.4cm)PWd0.91 (0.7-1.1cm) IVSs1.17 (0.8-1.2cm)LVDs2.86 (2.5-4.0cm) FS (%) 40.5 %PWs1.40 (0.8-1.2cm) M-Mode DIMENSIONS Left Atrium (MM)4.59 (2.5-4.0cm)IVSd1.26 (0.7-1.1cm) Aortic Root3.26 (2.2-3.7cm)LVDd5.47 (4.0-5.6cm) Aortic Cusp Exc.1.74 (1.5-2.0cm)PWd1.06 (0.7-1.1cm) IVSs1.76 cmFS (%) 48 % LVDs2.82 (2.0-3.8cm)PWs2.09 cm Aortic Valve AoV Peak Hbvvktqf615.2cm/sAoV VTI30.6cmAO Peak GR.11mmHg LVOT Peak Xtmeugjq621.1cm/sLVOT VTI23.11cmAO Mean GR.6mmHg MAZIN (VMAX)1.26pv3RFW (VTI)1.19cm2 Mitral Valve MV E Jgsjlasf68.5cm/sMV DECEL [id number] A Gryuxywt62.6cm/s MV AIM20aiL/A ratio1.0MVA (PHT)3.70cm2 TDI Lateral E' Peak V12.39cm/sMedial E' Peak V11.49cm/sE/Lateral E'6.1 E/Medial E'6.6 LEFT VENTRICLE The left ventricle is normal size. There is normal left ventricular wall thickness. The left ventricular systolic function is normal. The estimated ejection fraction is 55-60% No regional wall motion abnormalities noted.. The left ventricular diastolic function is normal. No left ventricle thrombus noted on this study. There is no ventricular septal defect visualized. There is no left ventricular aneurysm. There is no mass noted in the left ventricle. RIGHT VENTRICLE The right ventricle is normal size. There is normal right ventricular wall thickness. The right ventricular systolic function is normal. ATRIA The left atrium is mildly dilated. The right atrium size is normal. The interatrial septum is intact with no evidence for an atrial septal defect. AORTIC VALVE The aortic valve is normal in structure. Trace aortic regurgitation is present. There is no aortic valvular stenosis. There is no aortic valvular vegetation. MITRAL VALVE The mitral valve is normal in structure. There is no evidence of mitral valve prolapse. There is no mitral valve stenosis. There is mild mitral valve regurgitation noted. TRICUSPID VALVE The tricuspid valve is normal in structure. There is trace tricuspid valve regurgitation noted. There is no tricuspid valve prolapse or vegetation. There is no tricuspid valve stenosis. PULMONIC VALVE The pulmonary valve is normal in structure. There is no pulmonic valvular regurgitation. There is no pulmonic valvular stenosis. GREAT VESSELS The aortic root is normal in size. The ascending aorta is normal in size. The pulmonary artery is normal. The IVC is normal in size and collapses >50% with inspiration. PERICARDIAL EFFUSION There is no pericardial effusion. There is no pleural effusion. <Conclusion> The estimated ejection fraction is 55-60% The left ventricular diastolic function is normal. The left atrium is mildly dilated. The right ventricular systolic function is normal. No signs of RV strain. Correlate clinically. There is mild mitral valve regurgitation noted. There is trace tricuspid valve regurgitation noted.
--- NOTE | 2018-07-06 16:54 | CP.PCM.CON ---
History of Present Illness - History of Present Illness History of Present Illness: 62 YR OLD MALE REFERRED FOR PULMONARY EVALUATION BECAUSE OF GENERALIZED WEAKNESS AND SEVERE SYMPTOMATIC ANEMIA AND SHORTNESS OF BREATH.DENIES CHEST PAINS,COUGH,BLOODY OR TARRY STOOLS. HX OF HYPERTENSION DENIES SMOKING/ALCOHOL OR DRUG USE Past Patient History - Past Medical History & Family History Past Medical History?: Yes - Past Social History Smoking Status: Never Smoked - CARDIAC Hx Cardiac Disorders: Yes Hx Hypertension: Yes - PULMONARY Hx Respiratory Disorders: No - NEUROLOGICAL Hx Neurological Disorder: No - HEENT Hx HEENT Problems: No - RENAL Hx Chronic Kidney Disease: No - ENDOCRINE/METABOLIC Hx Endocrine Disorders: No - HEMATOLOGICAL/ONCOLOGICAL Hx Blood Disorders: No - INTEGUMENTARY Hx Dermatological Problems: No - MUSCULOSKELETAL/RHEUMATOLOGICAL Hx Musculoskeletal Disorders: No Hx Falls: No - GASTROINTESTINAL Hx Gastrointestinal Disorders: No - GENITOURINARY/GYNECOLOGICAL Hx Genitourinary Disorders: No - PSYCHIATRIC Hx Psychophysiologic Disorder: No Hx Substance Use: No - SURGICAL HISTORY Hx Surgeries: No - ANESTHESIA Hx Anesthesia: No Meds Allergies/Adverse Reactions: Allergies Allergy/AdvReac Type Severity Reaction Status Date / Time No Known Allergies Allergy Verified 07/05/18 14:26 - Medications Medications: Current Medications Amlodipine Besylate (Norvasc) 10 mg PO DAILY [facility] Sodium Chloride (Sodium Chloride 0.9%) 1,000 mls @ 150 mls/hr IV .Q6H40M [facility] Last Admin: 07/06/18 14:10 Dose: 150 mls/hr Loratadine (Claritin) 10 mg PO DAILY [facility] Pantoprazole Sodium (Protonix Inj) 40 mg IVP Q12 [facility] Last Admin: 07/06/18 09:45 Dose: 40 mg Physical Exam - Constitutional Appears: No Acute Distress - Head Exam Head Exam: ATRAUMATIC, NORMAL INSPECTION, NORMOCEPHALIC - Eye Exam Eye Exam: EOMI, Normal appearance, PERRL Pupil Exam: NORMAL ACCOMODATION, PERRL - ENT Exam ENT Exam: Mucous Membranes Moist, Normal Exam - Neck Exam Neck exam: Positive for: Normal Inspection - Respiratory Exam Respiratory Exam: Clear to Auscultation Bilateral, NORMAL BREATHING PATTERN - Cardiovascular Exam Cardiovascular Exam: REGULAR RHYTHM - GI/Abdominal Exam GI & Abdominal Exam: Normal Bowel Sounds, Soft. absent: Tenderness - Rectal Exam Rectal Exam: NORMAL INSPECTION - Extremities Exam Extremities exam: Positive for: normal inspection - Back Exam Back exam: NORMAL INSPECTION - Neurological Exam Neurological exam: Alert, CN II-XII Intact, Normal Gait, Oriented x3, Reflexes Normal - Psychiatric Exam Psychiatric exam: Normal Affect, Normal Mood - Skin Skin Exam: Dry, Intact, Normal Color, Warm Results - Vital Signs Recent Vital Signs: Last Vital Signs Temp 99 F 07/06/18 16:04 Pulse 83 07/06/18 16:04 Resp 16 07/06/18 16:04 BP 141/85 07/06/18 16:04 Pulse Ox 98 07/06/18 16:04 - Labs Result Diagrams: 07/06/18 11:17 07/06/18 11:17 Labs: Laboratory Results - last 24 hr 07/05/18 07/05/18 07/05/18 15:35 15:35 15:35 WBC 12.6 H RBC 2.06 L Hgb 4.3 L* Hct 14.5 L MCV 70.6 L MCH 21.1 L MCHC 29.8 L RDW 18.4 H Plt Count 384 MPV 8.8 Neut % (Auto) 85.7 H Lymph % (Auto) 5.0 L [place] % (Auto) 9.0 Eos % (Auto) 0.0 Baso % (Auto) 0.3 Neut # (Auto) 10.8 H Lymph # (Auto) 0.6 L [place] # (Auto) 1.1 H Eos # (Auto) 0.0 Baso # (Auto) 0.0 Neutrophils % (Manual) 84 H Band Neutrophils % 4 H Lymphocytes % (Manual) 7 L Monocytes % (Manual) 5 Platelet Estimate Normal Polychromasia Moderate Hypochromasia (manual) Moderate Poikilocytosis (manual Marked Anisocytosis (manual) Marked Microcytosis (manual) Moderate Tear Drop Cells Slight Ovalocytes Slight Acanthocytes (Spur) Slight Schistocytes Slight Retic Count Sodium 136 Potassium 4.3 Chloride 104 Carbon Dioxide 24 Anion Gap 12 BUN 18 Creatinine 1.1 Est GFR ( Amer) > 60 Est GFR (Non-Af Amer) > 60 Random Glucose 108 Calcium 8.6 Iron TIBC % Saturation Transferrin Ferritin Total Bilirubin 0.2 AST 22 ALT 27 Alkaline Phosphatase 72 Troponin I < 0.0120 NT-Pro-B Natriuret Pep 103 Total Protein 6.2 L Albumin 3.5 Globulin 2.7 Albumin/Globulin Ratio 1.3 Vitamin B12 Stool Occult Blood Blood Type O POSITIVE Blood Type Confirm Antibody Screen Negative Crossmatch See Detail BBK History Checked No verified bt 07/05/18 07/05/18 07/06/18 18:57 19:10 11:17 WBC 10.3 RBC 3.44 L Hgb 8.6 L D Hct 26.9 L MCV 78.0 L D MCH 25.1 L MCHC 32.1 L RDW 20.3 H Plt Count 229 D MPV 9.3 Neut % (Auto) 73.4 Lymph % (Auto) 15.2 L [place] % (Auto) 10.2 H Eos % (Auto) 0.3 Baso % (Auto) 0.9 Neut # (Auto) 7.6 H Lymph # (Auto) 1.6 [place] # (Auto) 1.0 H Eos # (Auto) 0.0 Baso # (Auto) 0.1 Neutrophils % (Manual) Band Neutrophils % Lymphocytes % (Manual) Monocytes % (Manual) Platelet Estimate Polychromasia Hypochromasia (manual) Poikilocytosis (manual Anisocytosis (manual) Microcytosis (manual) Tear Drop Cells Ovalocytes Acanthocytes (Spur) Schistocytes Retic Count Sodium Potassium Chloride Carbon Dioxide Anion Gap BUN Creatinine Est GFR ( Amer) Est GFR (Non-Af Amer) Random Glucose Calcium Iron TIBC % Saturation Transferrin Ferritin Total Bilirubin AST ALT Alkaline Phosphatase Troponin I NT-Pro-B Natriuret Pep Total Protein Albumin Globulin Albumin/Globulin Ratio Vitamin B12 Stool Occult Blood TNP Blood Type Blood Type Confirm O POSITIVE Antibody Screen Crossmatch BBK History Checked 07/06/18 07/06/18 07/06/18 11:17 11:17 11:17 WBC RBC Hgb Hct MCV MCH MCHC RDW Plt Count MPV Neut % (Auto) Lymph % (Auto) [place] % (Auto) Eos % (Auto) Baso % (Auto) Neut # (Auto) Lymph # (Auto) [place] # (Auto) Eos # (Auto) Baso # (Auto) Neutrophils % (Manual) Band Neutrophils % Lymphocytes % (Manual) Monocytes % (Manual) Platelet Estimate Polychromasia Hypochromasia (manual) Poikilocytosis (manual Anisocytosis (manual) Microcytosis (manual) Tear Drop Cells Ovalocytes Acanthocytes (Spur) Schistocytes Retic Count Sodium 138 Potassium 4.2 Chloride 104 Carbon Dioxide 23 Anion Gap 15 BUN 14 Creatinine 0.9 Est GFR ( Amer) > 60 Est GFR (Non-Af Amer) > 60 Random Glucose 110 Calcium 8.7 Iron 66 TIBC 412 % Saturation 16 L Transferrin 269.77 Ferritin Total Bilirubin AST ALT Alkaline Phosphatase Troponin I NT-Pro-B Natriuret Pep Total Protein Albumin Globulin Albumin/Globulin Ratio Vitamin B12 Stool Occult Blood Blood Type Blood Type Confirm Antibody Screen Crossmatch BBK History Checked 07/06/18 07/06/18 11:17 11:17 WBC RBC Hgb Hct MCV MCH MCHC RDW Plt Count MPV Neut % (Auto) Lymph % (Auto) [place] % (Auto) Eos % (Auto) Baso % (Auto) Neut # (Auto) Lymph # (Auto) [place] # (Auto) Eos # (Auto) Baso # (Auto) Neutrophils % (Manual) Band Neutrophils % Lymphocytes % (Manual) Monocytes % (Manual) Platelet Estimate Polychromasia Hypochromasia (manual) Poikilocytosis (manual Anisocytosis (manual) Microcytosis (manual) Tear Drop Cells Ovalocytes Acanthocytes (Spur) Schistocytes Retic Count 2.2 H Sodium Potassium Chloride Carbon Dioxide Anion Gap BUN Creatinine Est GFR ( Amer) Est GFR (Non-Af Amer) Random Glucose Calcium Iron TIBC % Saturation Transferrin Ferritin 5.0 L Total Bilirubin AST ALT Alkaline Phosphatase Troponin I NT-Pro-B Natriuret Pep Total Protein Albumin Globulin Albumin/Globulin Ratio Vitamin B12 283 Stool Occult Blood Blood Type Blood Type Confirm Antibody Screen Crossmatch BBK History Checked Assessment & Plan - Assessment and Plan (Free Text) Assessment: SHORTNESS OF BREATH RESOLVED FOLLOWING TRANSFUSION OF PRBCS[PROBABLY DUE TO SEVERE ANEMIA AND LOW OXYGEN CARRYING CAPACITY] ELEVATED D DIMER--NON-SPECIFIC?ETIOLOGY CT SCAN OF CHEST ONLY REMARKABLE FOR SUBSEGMENTAL PULMONARY EMBOLI AND CALCIFIED CLAUDIA GRANULOMA NO EVIDENCE OF SEGMENTAL OR CENTRAL PULMONARY EMBOLI NO EVIDENCE OF DVT ON ULTRASOUND Plan: SUGGEST-NO EVIDENCE OF ACUTE PULMONARY EMBOLI WILL NOT ANTICOAGULATE WITHOUT EVIDENCE OF SEGMENTAL OR SADDLE EMBOLI IN A PT WITH SEVERE ANEMIA OF UNDETERMINED ETIOLOGY WILL NOT PLACE AN IVC FILTER WITHOUT EVIDENCE OF DVT CONTINUE ANEMIA WORKUP ABGS IN AM O2 NEEDED CASE DISCUSSED WITH PT AND FAMILY VIA AN PHYSICIAN SPECIALIST AND HER INDICATES THAT HE UNDERSTANDS COMPLETELY THE PLANS AND THERAPEUTIC INTERVENTIONS - Date & Time Date: 07/06/18 Time: 17:06
[2018-07-07 05:06] LABS: ABG ALLEN TEST YES; ARTERIAL BLOOD GAS HCO3 26.3 mmol/L (21-28); ARTERIAL BLOOD GAS HEMOGLOBIN 8.2 g/dL (11.7-17.4); ARTERIAL BLOOD GAS O2 CAPACITY 11.4 mL/dL (16-24); ARTERIAL BLOOD GAS O2 CONTENT 11.3 ML/dL (15-23); ARTERIAL BLOOD GAS O2 SAT 99.5 % (95-98); ARTERIAL BLOOD GAS PCO2 36 mm/Hg (35-45); ARTERIAL BLOOD GAS PH 7.46 (7.35-7.45); ARTERIAL BLOOD GAS PO2 83 mm/Hg (80-100); ARTERIAL BLOOD GAS TCO2 26.7 mmol/L (22-28)
[2018-07-07 05:17] LABS: BASO # 0.1 K/uL (0.0-0.2); BASO % 0.9 % (0.0-2.0); EOS # 0.1 K/uL (0.0-0.7); EOS % 0.8 % (0.0-4.0); HEMOGLOBIN 7.9 g/dL (12.0-18.0); LYMPH # 1.4 K/uL (1.0-4.3); LYMPH % 15.8 % (20.0-40.0); MEAN CELL VOLUME 76.4 fl (80.0-94.0); MEAN CORPUSCULAR HEMOGLOBIN 25.2 pg (27.0-31.0); MEAN PLATELET VOLUME 8.2 fl (7.2-11.7); MONO # 1.1 K/uL (0.0-0.8); MONO % 12.3 % (0.0-10.0); NEUT # 6.2 K/uL (1.8-7.0); NEUT % 70.2 % (50.0-75.0); NRBC % 0.2 % (0.0-0.0); RBC 3.15 Mil/uL (4.40-5.90); RED CELL DISTRIBUTION WIDTH 20.6 % (11.5-14.5); WHITE BLOOD COUNT 8.9 K/uL (4.8-10.8)
[2018-07-07] MEDS: Sodium Chloride 0.9% 1,000 ML IV SCH ×2 (06:27→12:29)
[2018-07-07 07:03] LABS: ALB/GLOB RATIO 1.1 (1.0-2.1); ALBUMIN 3.1 g/dL (3.5-5.0); ALT/SGPT 23 U/L (21-72); AST/SGOT 19 U/L (17-59); BLOOD UREA NITROGEN 10 mg/dl (9-20); CALCIUM 8.3 mg/dL (8.4-10.2); GFR NON-AFRICAN AMERICAN > 60
--- NOTE | 2018-07-07 08:05 | CP.PCM.PN ---
Subjective - Date & Time of Evaluation Date of Evaluation: 07/07/18 Time of Evaluation: 09:02 - Subjective Subjective: [id number] Patient was seen and examined this morning at bedside. As per nurse, last night about 130-150cc of bright red blood was noted in his stool. Patients denies any other bloody bowel movemnts. He denies any cp,sob, lightheadedness or dizziness. Objective - Vital Signs/Intake and Output Vital Signs (last 24 hours): Temp Pulse Resp BP Pulse Ox 98.3 F 82 18 119/69 99 07/07/18 04:51 07/07/18 04:51 07/07/18 04:51 07/07/18 04:51 07/07/18 04:51 - Medications Medications: Current Medications Amlodipine Besylate (Norvasc) 10 mg PO DAILY [facility] Last Admin: 07/06/18 20:33 Dose: 10 mg Sodium Chloride (Sodium Chloride 0.9%) 1,000 mls @ 150 mls/hr IV .Q6H40M [facility] Last Admin: 07/07/18 06:27 Dose: 150 mls/hr Loratadine (Claritin) 10 mg PO DAILY [facility] Last Admin: 07/06/18 20:34 Dose: 10 mg Pantoprazole Sodium (Protonix Inj) 40 mg IVP Q12 [facility] Last Admin: 07/06/18 20:34 Dose: 40 mg - Labs Labs: 07/07/18 05:00 07/07/18 06:31 PT 11.3 Seconds (9.8-13.1) 07/05/18 16:23 INR 1.0 07/05/18 16:23 APTT 23.0 Seconds (25.6-37.1) L 07/05/18 16:23 - Constitutional Appears: Non-toxic - Head Exam Head Exam: ATRAUMATIC, NORMAL INSPECTION - Eye Exam Eye Exam: EOMI - ENT Exam ENT Exam: Mucous Membranes Dry - Respiratory Exam Respiratory Exam: Clear to Ausculation Bilateral. absent: Respiratory Distress - Cardiovascular Exam Cardiovascular Exam: REGULAR RHYTHM, +S1, +S2 - GI/Abdominal Exam GI & Abdominal Exam: Soft, Normal Bowel Sounds. absent: Guarding, Rigid, Tenderness - Extremities Exam Extremities Exam: absent: Calf Tenderness - Neurological Exam Neurological Exam: Alert, Awake, Oriented x3 - Psychiatric Exam Psychiatric exam: Normal Affect, Normal Mood - Skin Skin Exam: Dry, Intact Assessment and Plan - Assessment and Plan (Free Text) Assessment: 62 y/o M with PMH of HTN admitted to to telemetry for management of severe anemia and elevated D.dimer. 1. Severe Anemia -Dr. Ruano recommedations appreciated. Iron sucrose & B12 injections were added today. -Hgb: 4.3 initially; increased to 8.6 s/p transfusion with 4 prbc. 1 FFP received yestreday. H & H today- 7.12/28. -Abd CT showing few central small bowel loops in a pattern that may reflect developing ileus. No large or small bowel collapse. Enteritis possible but not favored. Dr. Aly recommendations appreciated-clear liquid diet with scope likely to be performed Thursday. -C/w Protonix 40mg IV Q12H 2. Elevated D.Dimer (Denies recent surgery or inactivities ) -Pulmonary consult with Dr. Amor. No interventions for subsegmental clots. -669 - CXR: Prob small b/l pleural effusion - Chest CT angio with few small subsegmental pulmonary emboli identified b/l upper and lower lobes. -Echo showed EF of 55-60%. 3. HTN (controlled) -Restarted amlodipine 10mg QD yesterday 4. Renal cysts -Multiple right renal cysts on abd CT. -Renal ultrasound showed simple cysts in b/l kidneys, largest in right upper pole measures 2 x 1.6 x 1.8cm. 5.DVT PPX - SCD due to severe anemia with unknown cause
--- NOTE | 2018-07-07 08:46 | CON ---
DATE: 07/06/2018 REFERRING PHYSICIAN: . REASON FOR CONSULTATION: Anemia. HISTORY OF PRESENT ILLNESS: This is a 62-year-old male with a history shortness of breath and anemia. The patient has had intermittent rectal bleeding while wiping for the past two weeks. No weight loss. Some discomfort . The patient had a colonoscopy about a year ago which was grossly unremarkable. Currently, the patient is lying in bed comfortably, in no apparent distress. PAST MEDICAL HISTORY: As above. PAST SURGICAL HISTORY: As above. MEDICATIONS: Have been reviewed. REVIEW OF SYSTEMS: All other systems have been reviewed and negative apart from the HPI. PHYSICAL EXAMINATION: VITAL SIGNS: Here in the hospital grossly unremarkable. GENERAL: This is a pleasant elderly man, lying in bed comfortably, in no apparent distress. HEENT: Head: Normocephalic and atraumatic. Eyes: Pupils are equally reactive to light bilaterally. No conjunctival pallor or icterus. NECK: Supple. Normal range of motion. No lymphadenopathy appreciated. LUNGS: Coarse breath sounds bilaterally. HEART: S1 and S2. Regular rate and rhythm. No murmurs appreciated. ABDOMEN: Soft. Nontender. Bowel sounds present. No discomfort. No distention. No rebound. No guarding. RECTAL: Deferred. EXTREMITIES: Pulses present bilaterally. SKIN: Warm, dry, and intact. NEUROLOGIC: A and O x3. LABORATORY DATA: Labs and radiology have been reviewed. CAT scan of the abdomen shows fecal material, small bowel loops, possible ileus, enteritis limited. WBC 12.6, hemoglobin 14.3, hematocrit 40.5, platelet count is normal. LFTs are unremarkable. ASSESSMENT AND PLAN: This is a 62-year-old man with anemia. CAT scan of the chest is pending. From a gastroenterology standpoint, advance diet as tolerated. Outpatient endoscopy and colonoscopy as indicated. Laxatives for now. Transfuse as needed. Thank you for the consult. Espinoza Garcia MD/ PhD cc: .
[2018-07-07] MEDS ORDERED: Benzocaine/Menthol (Cepacol) Lozenge PO ONE (10:30)
--- NOTE | 2018-07-07 11:07 | CP.PCM.CON ---
History of Present Illness - History of Present Illness History of Present Illness: This is a 62 yrs old man who was admitted from the ER because of profound anemia of 4.3 gms. pt has c/o rectal bleeding of and on on every week. There is no abdominal pain, no loss of appetite,but he has lost 10 lbs in the last month. He was found to have a ? PE but the reading was revised and he could not be prophylactically given anticoagulants because of the anemia, Last night he has significant rectal bleeding and the count from 8.6 to 7.9. His ferritin was low 5 ngm, and iron sat was 16%. B12 was 283. He was a smoker for 29 yrs but stopped 15 yrs ago. He drinks a couple of beers during the week, and a little more during the weekend. F/H mother of colon cancer Past Patient History - Past Medical History & Family History Past Medical History?: Yes - Past Social History Smoking Status: Never Smoked - CARDIAC Hx Cardiac Disorders: Yes Hx Hypertension: Yes - PULMONARY Hx Respiratory Disorders: No - NEUROLOGICAL Hx Neurological Disorder: No - HEENT Hx HEENT Problems: No - RENAL Hx Chronic Kidney Disease: No - ENDOCRINE/METABOLIC Hx Endocrine Disorders: No - HEMATOLOGICAL/ONCOLOGICAL Hx Blood Disorders: No - INTEGUMENTARY Hx Dermatological Problems: No - MUSCULOSKELETAL/RHEUMATOLOGICAL Hx Musculoskeletal Disorders: No Hx Falls: No - GASTROINTESTINAL Hx Gastrointestinal Disorders: No - GENITOURINARY/GYNECOLOGICAL Hx Genitourinary Disorders: No - PSYCHIATRIC Hx Psychophysiologic Disorder: No Hx Substance Use: No - SURGICAL HISTORY Hx Surgeries: No - ANESTHESIA Hx Anesthesia: No Meds Allergies/Adverse Reactions: Allergies Allergy/AdvReac Type Severity Reaction Status Date / Time No Known Allergies Allergy Verified 07/05/18 14:26 - Medications Medications: Current Medications Amlodipine Besylate (Norvasc) 10 mg PO DAILY [facility] Last Admin: 07/07/18 08:16 Dose: 10 mg Cyanocobalamin (Vitamin B12 1000 Mcg/Ml Inj) 1,000 mcg SC ONCE ONE Stop: 07/07/18 11:02 Sodium Chloride (Sodium Chloride 0.9%) 1,000 mls @ 150 mls/hr IV .Q6H40M [facility] Last Admin: 07/07/18 06:27 Dose: 150 mls/hr Iron Sucrose 200 mg/ Sodium (Chloride) 110 mls @ 110 mls/hr IVPB ONCE ONE Stop: 07/07/18 11:59 Loratadine (Claritin) 10 mg PO DAILY [facility] Last Admin: 07/07/18 08:17 Dose: 10 mg Pantoprazole Sodium (Protonix Inj) 40 mg IVP Q12 [facility] Last Admin: 07/07/18 08:17 Dose: 40 mg Physical Exam - Additional Findings Additional findings: Physical eam; Alert,well oriented, in no acute distres.feels much better after the transfusion. Neck; Supple, no adenopathy Chest; clear, no relaes or rhonchi Heart; RSR, no murmur Abd; Soft, no mass, no h/s megaly. Results - Vital Signs Recent Vital Signs: Last Vital Signs Temp 97.4 F L 07/07/18 08:07 Pulse 85 07/07/18 08:16 Resp 20 07/07/18 08:07 BP 147/76 07/07/18 08:16 Pulse Ox 98 07/07/18 08:07 - Labs Result Diagrams: 07/07/18 05:00 07/07/18 06:31 Labs: Laboratory Results - last 24 hr 07/05/18 07/06/18 07/06/18 15:35 11:17 11:17 WBC 10.3 RBC 3.44 L Hgb 8.6 L D Hct 26.9 L MCV 78.0 L D MCH 25.1 L MCHC 32.1 L RDW 20.3 H Plt Count 229 D MPV 9.3 Neut % (Auto) 73.4 Lymph % (Auto) 15.2 L [place] % (Auto) 10.2 H Eos % (Auto) 0.3 Baso % (Auto) 0.9 Neut # (Auto) 7.6 H Lymph # (Auto) 1.6 [place] # (Auto) 1.0 H Eos # (Auto) 0.0 Baso # (Auto) 0.1 Retic Count pCO2 pO2 HCO3 ABG pH ABG Total CO2 ABG O2 Saturation ABG O2 Content ABG Base Excess ABG Hemoglobin ABG Carboxyhemoglobin POC ABG HHb (Measured) ABG Methemoglobin ABG O2 Capacity [place] Test A-a O2 Difference Hgb O2 Saturation FiO2 Sodium 138 Potassium 4.2 Chloride 104 Carbon Dioxide 23 Anion Gap 15 BUN 14 Creatinine 0.9 Est GFR ( Amer) > 60 Est GFR (Non-Af Amer) > 60 Random Glucose 110 Calcium 8.7 Iron TIBC % Saturation Transferrin Ferritin Total Bilirubin AST ALT Alkaline Phosphatase Total Protein Albumin Globulin Albumin/Globulin Ratio Vitamin B12 Blood Type O POSITIVE Antibody Screen Negative Crossmatch See Detail BBK History Checked No verified bt 07/06/18 07/06/18 07/06/18 11:17 11:17 11:17 WBC RBC Hgb Hct MCV MCH MCHC RDW Plt Count MPV Neut % (Auto) Lymph % (Auto) [place] % (Auto) Eos % (Auto) Baso % (Auto) Neut # (Auto) Lymph # (Auto) [place] # (Auto) Eos # (Auto) Baso # (Auto) Retic Count pCO2 pO2 HCO3 ABG pH ABG Total CO2 ABG O2 Saturation ABG O2 Content ABG Base Excess ABG Hemoglobin ABG Carboxyhemoglobin POC ABG HHb (Measured) ABG Methemoglobin ABG O2 Capacity [place] Test A-a O2 Difference Hgb O2 Saturation FiO2 Sodium Potassium Chloride Carbon Dioxide Anion Gap BUN Creatinine Est GFR ( Amer) Est GFR (Non-Af Amer) Random Glucose Calcium Iron 66 TIBC 412 % Saturation 16 L Transferrin 269.77 Ferritin 5.0 L Total Bilirubin AST ALT Alkaline Phosphatase Total Protein Albumin Globulin Albumin/Globulin Ratio Vitamin B12 283 Blood Type Antibody Screen Crossmatch BBK History Checked 07/06/18 07/07/18 07/07/18 11:17 05:00 05:02 WBC 8.9 RBC 3.15 L Hgb 7.9 L Hct 24.0 L MCV 76.4 L MCH 25.2 L MCHC 33.0 RDW 20.6 H Plt Count 319 MPV 8.2 Neut % (Auto) 70.2 Lymph % (Auto) 15.8 L [place] % (Auto) 12.3 H Eos % (Auto) 0.8 Baso % (Auto) 0.9 Neut # (Auto) 6.2 Lymph # (Auto) 1.4 [place] # (Auto) 1.1 H Eos # (Auto) 0.1 Baso # (Auto) 0.1 Retic Count 2.2 H pCO2 36 pO2 83 HCO3 26.3 ABG pH 7.46 H ABG Total CO2 26.7 ABG O2 Saturation 99.5 H ABG O2 Content 11.3 L ABG Base Excess 1.7 ABG Hemoglobin 8.2 L ABG Carboxyhemoglobin 1.5 POC ABG HHb (Measured) 0.5 ABG Methemoglobin 1.1 ABG O2 Capacity 11.4 L [place] Test Yes A-a O2 Difference 22.0 Hgb O2 Saturation 96.8 FiO2 21.0 Sodium Potassium Chloride Carbon Dioxide Anion Gap BUN Creatinine Est GFR ( Amer) Est GFR (Non-Af Amer) Random Glucose Calcium Iron TIBC % Saturation Transferrin Ferritin Total Bilirubin AST ALT Alkaline Phosphatase Total Protein Albumin Globulin Albumin/Globulin Ratio Vitamin B12 Blood Type Antibody Screen Crossmatch BBK History Checked 07/07/18 06:31 WBC RBC Hgb Hct MCV MCH MCHC RDW Plt Count MPV Neut % (Auto) Lymph % (Auto) [place] % (Auto) Eos % (Auto) Baso % (Auto) Neut # (Auto) Lymph # (Auto) [place] # (Auto) Eos # (Auto) Baso # (Auto) Retic Count pCO2 pO2 HCO3 ABG pH ABG Total CO2 ABG O2 Saturation ABG O2 Content ABG Base Excess ABG Hemoglobin ABG Carboxyhemoglobin POC ABG HHb (Measured) ABG Methemoglobin ABG O2 Capacity [place] Test A-a O2 Difference Hgb O2 Saturation FiO2 Sodium 138 Potassium 3.8 Chloride 105 Carbon Dioxide 25 Anion Gap 12 BUN 10 Creatinine 0.8 Est GFR ( Amer) > 60 Est GFR (Non-Af Amer) > 60 Random Glucose 94 Calcium 8.3 L Iron TIBC % Saturation Transferrin Ferritin Total Bilirubin 0.6 AST 19 ALT 23 Alkaline Phosphatase 69 Total Protein 5.9 L Albumin 3.1 L Globulin 2.7 Albumin/Globulin Ratio 1.1 Vitamin B12 Blood Type Antibody Screen Crossmatch BBK History Checked Assessment & Plan - Assessment and Plan (Free Text) Assessment: impression; Iron and B12 deficiency , rectal bleeding r/o gastric cancer. Plan: Plan; will give venofer and B12 as long as he is an inpatient. strongly suggest an endoscopy and colonoscopy. - Date & Time Date: 07/07/18 Time: 11:26
--- NOTE | 2018-07-07 11:21 | CP.PCM.PN ---
Subjective - Date & Time of Evaluation Date of Evaluation: 07/07/18 Time of Evaluation: 11:21 - Subjective Subjective: NO CHEST PAINS/SOB LUNGS-CLEAR ABGS ADEQUATE ON RA NO EVIDENCE OF ACUTE PULMONARY EMBOLI SUGGEST CONTINUE ANEMIA WORKUP NO FURTHER PULMONARY INTERVENTION FOR NOW WILL SIGN OFF CASE AND SEE AGAIN AT YOUR REQUEST Objective - Vital Signs/Intake and Output Vital Signs (last 24 hours): Temp Pulse Resp BP Pulse Ox 97.4 F L 85 20 147/76 98 07/07/18 08:07 07/07/18 08:16 07/07/18 08:07 07/07/18 08:16 07/07/18 08:07 - Medications Medications: Current Medications Amlodipine Besylate (Norvasc) 10 mg PO DAILY [facility] Last Admin: 07/07/18 08:16 Dose: 10 mg Cyanocobalamin (Vitamin B12 1000 Mcg/Ml Inj) 1,000 mcg SC DAILY [facility] Stop: 07/11/18 09:01 Sodium Chloride (Sodium Chloride 0.9%) 1,000 mls @ 150 mls/hr IV .Q6H40M [facility] Last Admin: 07/07/18 06:27 Dose: 150 mls/hr Iron Sucrose 200 mg/ Sodium (Chloride) 110 mls @ 220 mls/hr IVPB DAILY [facility] Stop: 07/10/18 09:29 Loratadine (Claritin) 10 mg PO DAILY [facility] Last Admin: 07/07/18 08:17 Dose: 10 mg Pantoprazole Sodium (Protonix Inj) 40 mg IVP Q12 [facility] Last Admin: 07/07/18 08:17 Dose: 40 mg - Labs Labs: 07/07/18 05:00 07/07/18 06:31 PT 11.3 Seconds (9.8-13.1) 07/05/18 16:23 INR 1.0 07/05/18 16:23 APTT 23.0 Seconds (25.6-37.1) L 07/05/18 16:23
[2018-07-08 06:56] LABS: BLOOD UREA NITROGEN 9 mg/dl (9-20); CALCIUM 8.9 mg/dL (8.4-10.2); GFR NON-AFRICAN AMERICAN > 60
[2018-07-08 06:58] LABS: HEMOGLOBIN 9.6 g/dL (12.0-18.0); MEAN CORPUSCULAR HEMOGLOBIN 26.1 pg (27.0-31.0); MEAN CORPUSCULAR HGB CONC 33.3 g/dL (33.0-37.0); RBC 3.67 Mil/uL (4.40-5.90); RED CELL DISTRIBUTION WIDTH 21.1 % (11.5-14.5); WHITE BLOOD COUNT 7.8 K/uL (4.8-10.8)
[2018-07-08 07:12] LABS: MEAN CELL VOLUME 78.4 fl (80.0-94.0)
[2018-07-08] MEDS: Sodium Chloride 0.9% 1,000 ML IV SCH ×3 (09:12→21:16)
--- NOTE | 2018-07-08 09:19 | CP.PCM.PN ---
Subjective - Date & Time of Evaluation Date of Evaluation: 07/08/18 Time of Evaluation: 09:16 - Subjective Subjective: Pt is feeling better today. He was transfused one more unit of blood last night and hgb today is 9.6. no more bleeding rectally yesterday.Awaiting GI evaluation. Objective - Vital Signs/Intake and Output Vital Signs (last 24 hours): Temp Pulse Resp BP Pulse Ox 97.9 F 80 20 126/67 100 07/08/18 07:57 07/08/18 09:02 07/08/18 07:57 07/08/18 09:02 07/08/18 07:57 Intake and Output: 07/08/18 07/08/18 06:59 18:59 Intake Total 375 Balance 375 - Medications Medications: Current Medications Amlodipine Besylate (Norvasc) 10 mg PO DAILY [facility] Last Admin: 07/08/18 09:02 Dose: 10 mg Cyanocobalamin (Vitamin B12 1000 Mcg/Ml Inj) 1,000 mcg SC DAILY [facility] Stop: 07/11/18 09:01 Last Admin: 07/08/18 09:05 Dose: 1,000 mcg Sodium Chloride (Sodium Chloride 0.9%) 1,000 mls @ 150 mls/hr IV .Q6H40M [facility] Last Admin: 07/08/18 09:12 Dose: 150 mls/hr Iron Sucrose 200 mg/ Sodium (Chloride) 110 mls @ 220 mls/hr IVPB DAILY [facility] Stop: 07/10/18 09:29 Last Admin: 07/08/18 09:05 Dose: 220 mls/hr Loratadine (Claritin) 10 mg PO DAILY [facility] Last Admin: 07/08/18 09:01 Dose: 10 mg Pantoprazole Sodium (Protonix Inj) 40 mg IVP Q12 [facility] Last Admin: 07/08/18 09:02 Dose: 40 mg - Labs Labs: 07/08/18 04:25 07/08/18 04:25 PT 11.3 Seconds (9.8-13.1) 07/05/18 16:23 INR 1.0 07/05/18 16:23 APTT 23.0 Seconds (25.6-37.1) L 07/05/18 16:23 Assessment and Plan - Assessment and Plan (Free Text) Plan: Plan;continue venofer and B12 as long as he is here.
--- NOTE | 2018-07-08 11:22 | CP.PCM.PN ---
Subjective - Date & Time of Evaluation Date of Evaluation: 07/08/18 Time of Evaluation: 09:14 - Subjective Subjective: Patient was seen and examined with Dr. Villarreal who provided French translation. Patient received 1 pRBC yesterday for a total of 5 prbc & 1FFP since this admission. He denied any f/c/cp, sob or lightheadedness. Pt will be NPO after midnight for EGD/colonoscopy tomorrow. Objective - Vital Signs/Intake and Output Vital Signs (last 24 hours): Temp Pulse Resp BP Pulse Ox 97.9 F 80 20 126/67 100 07/08/18 07:57 07/08/18 09:02 07/08/18 07:57 07/08/18 09:02 07/08/18 07:57 Intake and Output: 07/08/18 07/08/18 06:59 18:59 Intake Total 375 Balance 375 - Medications Medications: Current Medications Amlodipine Besylate (Norvasc) 10 mg PO DAILY [facility] Last Admin: 07/08/18 09:02 Dose: 10 mg Cyanocobalamin (Vitamin B12 1000 Mcg/Ml Inj) 1,000 mcg SC DAILY [facility] Stop: 07/11/18 09:01 Last Admin: 07/08/18 09:05 Dose: 1,000 mcg Sodium Chloride (Sodium Chloride 0.9%) 1,000 mls @ 150 mls/hr IV .Q6H40M [facility] Last Admin: 07/08/18 09:12 Dose: 150 mls/hr Iron Sucrose 200 mg/ Sodium (Chloride) 110 mls @ 220 mls/hr IVPB DAILY [facility] Stop: 07/10/18 09:29 Last Admin: 07/08/18 09:05 Dose: 220 mls/hr Loratadine (Claritin) 10 mg PO DAILY [facility] Last Admin: 07/08/18 09:01 Dose: 10 mg Pantoprazole Sodium (Protonix Inj) 40 mg IVP Q12 [facility] Last Admin: 07/08/18 09:02 Dose: 40 mg - Labs Labs: 07/08/18 04:25 07/08/18 04:25 PT 11.3 Seconds (9.8-13.1) 07/05/18 16:23 INR 1.0 07/05/18 16:23 APTT 23.0 Seconds (25.6-37.1) L 07/05/18 16:23 - Constitutional Appears: No Acute Distress - Head Exam Head Exam: ATRAUMATIC - Eye Exam Eye Exam: EOMI - ENT Exam ENT Exam: Mucous Membranes Dry - Respiratory Exam Respiratory Exam: Clear to Ausculation Bilateral, NORMAL BREATHING PATTERN. absent: Respiratory Distress - Cardiovascular Exam Cardiovascular Exam: REGULAR RHYTHM, +S1, +S2 - GI/Abdominal Exam GI & Abdominal Exam: Soft, Normal Bowel Sounds. absent: Guarding, Rigid, Tenderness - Extremities Exam Extremities Exam: absent: Calf Tenderness - Neurological Exam Neurological Exam: Alert, Awake, Oriented x3 - Psychiatric Exam Psychiatric exam: Normal Mood - Skin Skin Exam: Dry Assessment and Plan - Assessment and Plan (Free Text) Assessment: 62 y/o M with PMH of HTN admitted to to telemetry for management of severe anemia and elevated D.dimer. 1.Microcytic anemia of unclear etiology. Hgb 7.9 today. -Hgb: 4.3 initially;increased to 9.6 today s/p 5 unit PRBC & 1FFp transfusion -Venofer and B12 given as per Dr. Ruano -FOBT positive 07/06/2018 -NPO after midnight for EGD and colonscopy tomorrow by Dr. Aly -C/w Protonix 40mg IV Q12H -Abd CT showing few central small bowel loops in a pattern that may reflect developing ileus. No large or small bowel collapse. Enteritis possible but not favored. 2. Subsugmental PE - Chest CT angio with few small subsegmental pulmonary emboli identified b/l upper and lower lobes. - Dr. Amor recommended no need for anticoagulation -D dimer was 669 - CXR: Prob small b/l pleural effusion -Echo showed EF of 55-60%. 3. HTN (controlled) -C/w amlodipine 10mg QD 4. Renal cysts -Multiple right renal cysts on abd CT. -Renal ultrasound showed simple cysts in b/l kidneys, largest in right upper pole measures 2 x 1.6 x 1.8cm. -FU as outpatient 5.DVT PPX - SCD because of microcytic anemia of unclear etiology
[2018-07-08] MEDS ORDERED: Peg-Electrolyte Oral Soln 4L (Golytely) PO ONE (17:35)
[2018-07-08 22:41] VITALS: BMI 26.6
[2018-07-09] MEDS: Sodium Chloride 0.9% 1,000 ML IV SCH (04:47)
[2018-07-09 06:23] LABS: BASO # 0.1 K/uL (0.0-0.2); BASO % 0.8 % (0.0-2.0); EOS # 0.1 K/uL (0.0-0.7); EOS % 1.6 % (0.0-4.0); HEMOGLOBIN 9.3 g/dL (12.0-18.0); LYMPH # 0.9 K/uL (1.0-4.3); LYMPH % 12.3 % (20.0-40.0); MEAN CELL VOLUME 78.6 fl (80.0-94.0); MEAN CORPUSCULAR HEMOGLOBIN 25.7 pg (27.0-31.0); MEAN CORPUSCULAR HGB CONC 32.7 g/dL (33.0-37.0); MEAN PLATELET VOLUME 8.2 fl (7.2-11.7); MONO # 0.9 K/uL (0.0-0.8); MONO % 13.2 % (0.0-10.0); NEUT # 5.2 K/uL (1.8-7.0); NEUT % 72.1 % (50.0-75.0); NRBC % 0.1 % (0.0-0.0); RBC 3.64 Mil/uL (4.40-5.90); RED CELL DISTRIBUTION WIDTH 21.9 % (11.5-14.5); WHITE BLOOD COUNT 7.2 K/uL (4.8-10.8)
[2018-07-09 06:34] LABS: BLOOD UREA NITROGEN 9 mg/dl (9-20); CALCIUM 8.4 mg/dL (8.4-10.2); GFR NON-AFRICAN AMERICAN > 60
--- NOTE | 2018-07-09 07:51 | CP.PCM.PN ---
Subjective - Date & Time of Evaluation Date of Evaluation: 07/09/18 Time of Evaluation: 07:49 - Subjective Subjective: Pt has not had any diarrhea last night. His hgb is 9.6gms and he is scheduled for endo and colonoscopy today Objective - Vital Signs/Intake and Output Vital Signs (last 24 hours): Temp Pulse Resp BP Pulse Ox 98.0 F 74 20 139/79 97 07/08/18 23:43 07/08/18 23:43 07/08/18 23:43 07/08/18 23:43 07/08/18 23:43 - Medications Medications: Current Medications Amlodipine Besylate (Norvasc) 10 mg PO DAILY [facility] Last Admin: 07/08/18 09:02 Dose: 10 mg Cyanocobalamin (Vitamin B12 1000 Mcg/Ml Inj) 1,000 mcg SC DAILY [facility] Stop: 07/11/18 09:01 Last Admin: 07/08/18 09:05 Dose: 1,000 mcg Sodium Chloride (Sodium Chloride 0.9%) 1,000 mls @ 150 mls/hr IV .Q6H40M [facility] Last Admin: 07/09/18 04:47 Dose: Not Given Iron Sucrose 200 mg/ Sodium (Chloride) 110 mls @ 220 mls/hr IVPB DAILY [facility] Stop: 07/10/18 09:29 Last Admin: 07/08/18 09:05 Dose: 220 mls/hr Loratadine (Claritin) 10 mg PO DAILY [facility] Last Admin: 07/08/18 09:01 Dose: 10 mg Pantoprazole Sodium (Protonix Inj) 40 mg IVP Q12 [facility] Last Admin: 07/08/18 20:23 Dose: 40 mg - Labs Labs: 07/09/18 05:35 07/09/18 05:35 PT 11.3 Seconds (9.8-13.1) 07/05/18 16:23 INR 1.0 07/05/18 16:23 APTT 23.0 Seconds (25.6-37.1) L 07/05/18 16:23
[2018-07-09] MEDS ORDERED: Propofol 10 mg/ml Inj (20 ML) ONE (08:31)
[2018-07-09] MEDS ORDERED: Lactated Ringer's 500 ML IV ONE (09:04)
--- NOTE | 2018-07-09 09:50 | CP.PCM.PN ---
Subjective - Date & Time of Evaluation Date of Evaluation: 07/07/18 Time of Evaluation: 16:30 - Subjective Subjective: no overnight events Objective - Vital Signs/Intake and Output Vital Signs (last 24 hours): Temp Pulse Resp BP Pulse Ox 98.9 F 85 12 155/87 H 99 07/09/18 09:05 07/09/18 09:05 07/09/18 09:05 07/09/18 09:05 07/09/18 09:05 Intake and Output: 07/09/18 07/09/18 06:59 18:59 Intake Total 100 Balance 100 - Medications Medications: Current Medications Amlodipine Besylate (Norvasc) 10 mg PO DAILY [facility] Last Admin: 07/08/18 09:02 Dose: 10 mg Cyanocobalamin (Vitamin B12 1000 Mcg/Ml Inj) 1,000 mcg SC DAILY [facility] Stop: 07/11/18 09:01 Last Admin: 07/09/18 08:56 Dose: 1,000 mcg Sodium Chloride (Sodium Chloride 0.9%) 1,000 mls @ 150 mls/hr IV .Q6H40M [facility] Last Admin: 07/09/18 04:47 Dose: Not Given Iron Sucrose 200 mg/ Sodium (Chloride) 110 mls @ 220 mls/hr IVPB DAILY [facility] Stop: 07/10/18 09:29 Last Admin: 07/08/18 09:05 Dose: 220 mls/hr Loratadine (Claritin) 10 mg PO DAILY [facility] Last Admin: 07/08/18 09:01 Dose: 10 mg Pantoprazole Sodium (Protonix Inj) 40 mg IVP Q12 [facility] Last Admin: 07/09/18 08:56 Dose: 40 mg - Labs Labs: 07/09/18 05:35 07/09/18 05:35 PT 11.3 Seconds (9.8-13.1) 07/05/18 16:23 INR 1.0 07/05/18 16:23 APTT 23.0 Seconds (25.6-37.1) L 07/05/18 16:23 - Head Exam Head Exam: NORMOCEPHALIC - Neck Exam Neck Exam: Normal Inspection - Respiratory Exam Respiratory Exam: Clear to Ausculation Bilateral, NORMAL BREATHING PATTERN - Cardiovascular Exam Cardiovascular Exam: REGULAR RHYTHM - GI/Abdominal Exam GI & Abdominal Exam: Soft, Normal Bowel Sounds Assessment and Plan - Assessment and Plan (Free Text) Assessment: 62 yo male with anemia egd/colon once able
--- NOTE | 2018-07-09 09:51 | CP.PCM.PN ---
Subjective - Date & Time of Evaluation Date of Evaluation: 07/08/18 Time of Evaluation: 17:00 - Subjective Subjective: no overnight events Objective - Vital Signs/Intake and Output Vital Signs (last 24 hours): Temp Pulse Resp BP Pulse Ox 98.9 F 85 12 155/87 H 99 07/09/18 09:05 07/09/18 09:05 07/09/18 09:05 07/09/18 09:05 07/09/18 09:05 Intake and Output: 07/09/18 07/09/18 06:59 18:59 Intake Total 100 Balance 100 - Medications Medications: Current Medications Amlodipine Besylate (Norvasc) 10 mg PO DAILY [facility] Last Admin: 07/08/18 09:02 Dose: 10 mg Cyanocobalamin (Vitamin B12 1000 Mcg/Ml Inj) 1,000 mcg SC DAILY [facility] Stop: 07/11/18 09:01 Last Admin: 07/09/18 08:56 Dose: 1,000 mcg Sodium Chloride (Sodium Chloride 0.9%) 1,000 mls @ 150 mls/hr IV .Q6H40M [facility] Last Admin: 07/09/18 04:47 Dose: Not Given Iron Sucrose 200 mg/ Sodium (Chloride) 110 mls @ 220 mls/hr IVPB DAILY [facility] Stop: 07/10/18 09:29 Last Admin: 07/08/18 09:05 Dose: 220 mls/hr Loratadine (Claritin) 10 mg PO DAILY [facility] Last Admin: 07/08/18 09:01 Dose: 10 mg Pantoprazole Sodium (Protonix Inj) 40 mg IVP Q12 [facility] Last Admin: 07/09/18 08:56 Dose: 40 mg - Labs Labs: 07/09/18 05:35 07/09/18 05:35 PT 11.3 Seconds (9.8-13.1) 07/05/18 16:23 INR 1.0 07/05/18 16:23 APTT 23.0 Seconds (25.6-37.1) L 07/05/18 16:23 - Head Exam Head Exam: NORMOCEPHALIC - Neck Exam Neck Exam: Normal Inspection - Respiratory Exam Respiratory Exam: Clear to Ausculation Bilateral, NORMAL BREATHING PATTERN - Cardiovascular Exam Cardiovascular Exam: REGULAR RHYTHM - GI/Abdominal Exam GI & Abdominal Exam: Soft, Normal Bowel Sounds Assessment and Plan - Assessment and Plan (Free Text) Assessment: 62 yo male with anemia egd/colon in AM
[2018-07-09] MEDS ORDERED: Dexamethasone 4 mg/1 ml IVP PRN (09:53)
[2018-07-09 10:32] VITALS: O2SAT 99
[2018-07-09 11:38] VITALS: BP 146/84; PULSE 69; RESP 18; TEMP 97.3
--- NOTE | 2018-07-09 15:47 | CP.PCM.DIS ---
<Ariadna Sethi - Last Filed: 07/09/18 17:06> Provider - Provider Date of Admission: 07/05/18 19:44 Attending physician: Asad Salas MD Consults: 07/05/18 20:05 Gastroenterology Consult Stat Comment: Consulting Provider: Espinoza Souza Consulting Physician: Espinoza Souza Reason for Consult: GI bleed, severe anemia 07/06/18 10:50 Hematology Oncology Consult Routine Comment: Consulting Provider: Mikhail Ruano Consulting Physician: Mikhail Ruano Reason for Consult: severe anemia and pulmonary embolism 07/06/18 10:51 Pulmonology Consult Routine Comment: Consulting Provider: Gelacio Amor I Consulting Physician: Gelacio Amor I Reason for Consult: bilateral pulmonary emboli, upper and lower lobes Time Spent in preparation of Discharge (in minutes): 30 Hospital Course - Lab Results Lab Results: Micro Results 07/05/18 15:35 Throat Group A Strep Throat Culture - Final NO BETA STREP GROUP A ISOLATED. Most Recent Lab Values WBC 7.2 K/uL (4.8-10.8) 07/09/18 05:35 RBC 3.64 Mil/uL (4.40-5.90) L 07/09/18 05:35 Hgb 9.3 g/dL (12.0-18.0) L 07/09/18 05:35 Hct 28.6 % (35.0-51.0) L 07/09/18 05:35 MCV 78.6 fl (80.0-94.0) L 07/09/18 05:35 MCH 25.7 pg (27.0-31.0) L 07/09/18 05:35 MCHC 32.7 g/dL (33.0-37.0) L 07/09/18 05:35 RDW 21.9 % (11.5-14.5) H 07/09/18 05:35 Plt Count 295 K/uL (130-400) 07/09/18 05:35 MPV 8.2 fl (7.2-11.7) 07/09/18 05:35 Neut % (Auto) 72.1 % (50.0-75.0) 07/09/18 05:35 Lymph % (Auto) 12.3 % (20.0-40.0) L 07/09/18 05:35 [place] % (Auto) 13.2 % (0.0-10.0) H 07/09/18 05:35 Eos % (Auto) 1.6 % (0.0-4.0) 07/09/18 05:35 Baso % (Auto) 0.8 % (0.0-2.0) 07/09/18 05:35 Neut # (Auto) 5.2 K/uL (1.8-7.0) 07/09/18 05:35 Lymph # (Auto) 0.9 K/uL (1.0-4.3) L 07/09/18 05:35 [place] # (Auto) 0.9 K/uL (0.0-0.8) H 07/09/18 05:35 Eos # (Auto) 0.1 K/uL (0.0-0.7) 07/09/18 05:35 Baso # (Auto) 0.1 K/uL (0.0-0.2) 07/09/18 05:35 Neutrophils % (Manual) 84 % (42-75) H 07/05/18 15:35 Band Neutrophils % 4 % (0-2) H 07/05/18 15:35 Lymphocytes % (Manual) 7 % (20-50) L 07/05/18 15:35 Monocytes % (Manual) 5 % (0-10) 07/05/18 15:35 Platelet Estimate Normal (NORMAL) 07/05/18 15:35 Polychromasia Moderate 07/05/18 15:35 Hypochromasia (manual) Moderate 07/05/18 15:35 Poikilocytosis (manual Marked 07/05/18 15:35 Anisocytosis (manual) Marked 07/05/18 15:35 Microcytosis (manual) Moderate 07/05/18 15:35 Tear Drop Cells Slight 07/05/18 15:35 Ovalocytes Slight 07/05/18 15:35 Acanthocytes (Spur) Slight 07/05/18 15:35 Schistocytes Slight 07/05/18 15:35 Retic Count 3.0 % (0.5-1.5) H D 07/08/18 04:25 PT 11.3 Seconds (9.8-13.1) 07/05/18 16:23 INR 1.0 07/05/18 16:23 APTT 23.0 Seconds (25.6-37.1) L 07/05/18 16:23 D-Dimer, Quantitative 669 ng/mlDDU (0-230) H 07/05/18 16:23 pCO2 36 mm/Hg (35-45) 07/07/18 05:02 pO2 83 mm/Hg (80-100) 07/07/18 05:02 HCO3 26.3 mmol/L (21-28) 07/07/18 05:02 ABG pH 7.46 (7.35-7.45) H 07/07/18 05:02 ABG Total CO2 26.7 mmol/L (22-28) 07/07/18 05:02 ABG O2 Saturation 99.5 % (95-98) H 07/07/18 05:02 ABG O2 Content 11.3 ML/dL (15-23) L 07/07/18 05:02 ABG Base Excess 1.7 mmol/L (-2.0-3.0) 07/07/18 05:02 ABG Hemoglobin 8.2 g/dL (11.7-17.4) L 07/07/18 05:02 ABG Carboxyhemoglobin 1.5 % (0.5-1.5) 07/07/18 05:02 POC ABG HHb (Measured) 0.5 % (0.0-5.0) 07/07/18 05:02 ABG Methemoglobin 1.1 % (0.0-3.0) 07/07/18 05:02 ABG O2 Capacity 11.4 mL/dL (16-24) L 07/07/18 05:02 Donato Test Yes 07/07/18 05:02 A-a O2 Difference 22.0 mm/Hg 07/07/18 05:02 Hgb O2 Saturation 96.8 % (95.0-98.0) 07/07/18 05:02 FiO2 21.0 % 07/07/18 05:02 Sodium 139 mmol/l (132-148) 07/09/18 05:35 Potassium 3.8 MMOL/L (3.6-5.0) 07/09/18 05:35 Chloride 107 mmol/L (98-107) 07/09/18 05:35 Carbon Dioxide 26 mmol/L (22-30) 07/09/18 05:35 Anion Gap 10 (10-20) 07/09/18 05:35 BUN 9 mg/dl (9-20) 07/09/18 05:35 Creatinine 0.9 mg/dl (0.8-1.5) 07/09/18 05:35 Est GFR ( Amer) > 60 07/09/18 05:35 Est GFR (Non-Af Amer) > 60 07/09/18 05:35 Random Glucose 88 mg/dL (75-110) 07/09/18 05:35 Calcium 8.4 mg/dL (8.4-10.2) 07/09/18 05:35 Iron 66 ug/dL (49-181) 07/06/18 11:17 TIBC 412 ug/dL (250-450) 07/06/18 11:17 % Saturation 16 % (20-55) L 07/06/18 11:17 Transferrin 269.77 mg/dL (206-381) 07/06/18 11:17 Ferritin 5.0 ng/Ml (17.9-464) L 07/06/18 11:17 Total Bilirubin 0.6 mg/dl (0.2-1.3) 07/07/18 06:31 AST 19 U/L (17-59) 07/07/18 06:31 ALT 23 U/L (21-72) 07/07/18 06:31 Alkaline Phosphatase 69 U/L (38-126) 07/07/18 06:31 Troponin I < 0.0120 ng/mL (0.00-0.120) 07/05/18 15:35 NT-Pro-B Natriuret Pep 103 pg/ml (0-900) 07/05/18 15:35 Total Protein 5.9 G/DL (6.3-8.2) L 07/07/18 06:31 Albumin 3.1 g/dL (3.5-5.0) L 07/07/18 06:31 Globulin 2.7 gm/dL (2.2-3.9) 07/07/18 06:31 Albumin/Globulin Ratio 1.1 (1.0-2.1) 07/07/18 06:31 Vitamin B12 283 pg/mL (239-931) 07/06/18 11:17 Stool Occult Blood Positive (NEGATIVE) H 07/06/18 08:35 Influenza Typ A,B (EIA) Negative for flu a/b (NEGATIVE) 07/05/18 15:35 Grp A Beta Strep Ag Negative (NEGATIVE) 07/05/18 15:35 Blood Type O POSITIVE 07/07/18 16:20 Blood Type Confirm O POSITIVE 07/05/18 19:10 Antibody Screen Negative 07/07/18 16:20 Crossmatch See Detail 07/07/18 16:20 BBK History Checked Patient has bt 07/07/18 16:20 - Hospital Course Hospital Course: 62 y/o M with PMH of HTN admitted to to telemetry for management of severe anemia and elevated D.dimer. Chest CT showed few small subsegmental pulmonary emboli identified b/l upper and lower lobes. Pulmonology recommended no anticoagulation necessary. Hgb: 4.3 initially;increased to 9.6 today s/p 5 unit PRBC & 1FFp transfusion. GI performed endoscopy and colonscopy which was negative for any findings. Pt to FU with PMD. 1.Microcytic anemia of unclear etiology. -Ferrous sulfate, Protonix 2. Subsugmental PE Pulmonology recommended no anticoagulation necessary. -Echo showed EF of 55-60%. 3. HTN (controlled) -C/w amlodipine 10mg QD 4. Renal cysts -FU as outpatient Discharge Exam - Head Exam Head Exam: NORMOCEPHALIC - Eye Exam Eye Exam: EOMI - ENT Exam ENT Exam: Mucous Membranes Moist - Neck Exam Neck exam: Full Rom - Respiratory Exam Respiratory Exam: NORMAL BREATHING PATTERN - Cardiovascular Exam Cardiovascular Exam: REGULAR RHYTHM, +S1, +S2 - GI/Abdominal Exam GI & Abdominal Exam: Normal Bowel Sounds, Soft. absent: Guarding, Rebound, Rigid, Tenderness - Extremities Exam Extremities exam: calf tenderness - Neurological Exam Neurological exam: Alert, CN II-XII Intact, Oriented x3 - Psychiatric Exam Psychiatric exam: Normal Mood - Skin Skin Exam: Dry Discharge Plan - Discharge Medications Prescriptions: amLODIPine [Norvasc] 10 mg PO DAILY #30 tab Cyanocobalamin [Vitamin B12 1000 mcg Tab] 1,000 mcg PO DAILY #30 tab Ferrous Sulfate 325 mg PO DAILY #30 tablet Pantoprazole Sodium [Protonix] 40 mg PO DAILY #30 ect - Follow Up Plan Condition: STABLE Disposition: HOME/ ROUTINE Instructions: Colonoscopy (DC), Gastrointestinal Bleeding (DC), Upper GI Endoscopy (DC) Additional Instructions: hacer herminia con cornejo doctor primario y dr souza dentro de 1 semana Referrals: Mikhail Ruano MD [Staff Provider] - Espinoza Souza MD, PhD [Staff Provider] - Gelacio Amor MD [Staff Provider] - <Asad Salas - Last Filed: 07/09/18 17:54> Provider - Provider Date of Admission: 07/05/18 19:44 Attending physician: Asad Salas MD Consults: 07/05/18 20:05 Gastroenterology Consult Stat Comment: Consulting Provider: Espinoza Souza Consulting Physician: Espinoza Souza Reason for Consult: GI bleed, severe anemia 07/06/18 10:50 Hematology Oncology Consult Routine Comment: Consulting Provider: Mikhail Ruano Consulting Physician: Mikhail Ruano Reason for Consult: severe anemia and pulmonary embolism 07/06/18 10:51 Pulmonology Consult Routine Comment: Consulting Provider: Gelacio Amor I Consulting Physician: Gelacio Amor I Reason for Consult: bilateral pulmonary emboli, upper and lower lobes Hospital Course - Lab Results Lab Results: Micro Results 07/05/18 15:35 Throat Group A Strep Throat Culture - Final NO BETA STREP GROUP A ISOLATED. Most Recent Lab Values WBC 7.2 K/uL (4.8-10.8) 07/09/18 05:35 RBC 3.64 Mil/uL (4.40-5.90) L 07/09/18 05:35 Hgb 9.3 g/dL (12.0-18.0) L 07/09/18 05:35 Hct 28.6 % (35.0-51.0) L 07/09/18 05:35 MCV 78.6 fl (80.0-94.0) L 07/09/18 05:35 MCH 25.7 pg (27.0-31.0) L 07/09/18 05:35 MCHC 32.7 g/dL (33.0-37.0) L 07/09/18 05:35 RDW 21.9 % (11.5-14.5) H 07/09/18 05:35 Plt Count 295 K/uL (130-400) 07/09/18 05:35 MPV 8.2 fl (7.2-11.7) 07/09/18 05:35 Neut % (Auto) 72.1 % (50.0-75.0) 07/09/18 05:35 Lymph % (Auto) 12.3 % (20.0-40.0) L 07/09/18 05:35 [place] % (Auto) 13.2 % (0.0-10.0) H 07/09/18 05:35 Eos % (Auto) 1.6 % (0.0-4.0) 07/09/18 05:35 Baso % (Auto) 0.8 % (0.0-2.0) 07/09/18 05:35 Neut # (Auto) 5.2 K/uL (1.8-7.0) 07/09/18 05:35 Lymph # (Auto) 0.9 K/uL (1.0-4.3) L 07/09/18 05:35 [place] # (Auto) 0.9 K/uL (0.0-0.8) H 07/09/18 05:35 Eos # (Auto) 0.1 K/uL (0.0-0.7) 07/09/18 05:35 Baso # (Auto) 0.1 K/uL (0.0-0.2) 07/09/18 05:35 Neutrophils % (Manual) 84 % (42-75) H 07/05/18 15:35 Band Neutrophils % 4 % (0-2) H 07/05/18 15:35 Lymphocytes % (Manual) 7 % (20-50) L 07/05/18 15:35 Monocytes % (Manual) 5 % (0-10) 07/05/18 15:35 Platelet Estimate Normal (NORMAL) 07/05/18 15:35 Polychromasia Moderate 07/05/18 15:35 Hypochromasia (manual) Moderate 07/05/18 15:35 Poikilocytosis (manual Marked 07/05/18 15:35 Anisocytosis (manual) Marked 07/05/18 15:35 Microcytosis (manual) Moderate 07/05/18 15:35 Tear Drop Cells Slight 07/05/18 15:35 Ovalocytes Slight 07/05/18 15:35 Acanthocytes (Spur) Slight 07/05/18 15:35 Schistocytes Slight 07/05/18 15:35 Retic Count 3.0 % (0.5-1.5) H D 07/08/18 04:25 PT 11.3 Seconds (9.8-13.1) 07/05/18 16:23 INR 1.0 07/05/18 16:23 APTT 23.0 Seconds (25.6-37.1) L 07/05/18 16:23 D-Dimer, Quantitative 669 ng/mlDDU (0-230) H 07/05/18 16:23 pCO2 36 mm/Hg (35-45) 07/07/18 05:02 pO2 83 mm/Hg (80-100) 07/07/18 05:02 HCO3 26.3 mmol/L (21-28) 07/07/18 05:02 ABG pH 7.46 (7.35-7.45) H 07/07/18 05:02 ABG Total CO2 26.7 mmol/L (22-28) 07/07/18 05:02 ABG O2 Saturation 99.5 % (95-98) H 07/07/18 05:02 ABG O2 Content 11.3 ML/dL (15-23) L 07/07/18 05:02 ABG Base Excess 1.7 mmol/L (-2.0-3.0) 07/07/18 05:02 ABG Hemoglobin 8.2 g/dL (11.7-17.4) L 07/07/18 05:02 ABG Carboxyhemoglobin 1.5 % (0.5-1.5) 07/07/18 05:02 POC ABG HHb (Measured) 0.5 % (0.0-5.0) 07/07/18 05:02 ABG Methemoglobin 1.1 % (0.0-3.0) 07/07/18 05:02 ABG O2 Capacity 11.4 mL/dL (16-24) L 07/07/18 05:02 Donato Test Yes 07/07/18 05:02 A-a O2 Difference 22.0 mm/Hg 07/07/18 05:02 Hgb O2 Saturation 96.8 % (95.0-98.0) 07/07/18 05:02 FiO2 21.0 % 07/07/18 05:02 Sodium 139 mmol/l (132-148) 07/09/18 05:35 Potassium 3.8 MMOL/L (3.6-5.0) 07/09/18 05:35 Chloride 107 mmol/L (98-107) 07/09/18 05:35 Carbon Dioxide 26 mmol/L (22-30) 07/09/18 05:35 Anion Gap 10 (10-20) 07/09/18 05:35 BUN 9 mg/dl (9-20) 07/09/18 05:35 Creatinine 0.9 mg/dl (0.8-1.5) 07/09/18 05:35 Est GFR ( Amer) > 60 07/09/18 05:35 Est GFR (Non-Af Amer) > 60 07/09/18 05:35 Random Glucose 88 mg/dL (75-110) 07/09/18 05:35 Calcium 8.4 mg/dL (8.4-10.2) 07/09/18 05:35 Iron 66 ug/dL (49-181) 07/06/18 11:17 TIBC 412 ug/dL (250-450) 07/06/18 11:17 % Saturation 16 % (20-55) L 07/06/18 11:17 Transferrin 269.77 mg/dL (206-381) 07/06/18 11:17 Ferritin 5.0 ng/Ml (17.9-464) L 07/06/18 11:17 Total Bilirubin 0.6 mg/dl (0.2-1.3) 07/07/18 06:31 AST 19 U/L (17-59) 07/07/18 06:31 ALT 23 U/L (21-72) 07/07/18 06:31 Alkaline Phosphatase 69 U/L (38-126) 07/07/18 06:31 Troponin I < 0.0120 ng/mL (0.00-0.120) 07/05/18 15:35 NT-Pro-B Natriuret Pep 103 pg/ml (0-900) 07/05/18 15:35 Total Protein 5.9 G/DL (6.3-8.2) L 07/07/18 06:31 Albumin 3.1 g/dL (3.5-5.0) L 07/07/18 06:31 Globulin 2.7 gm/dL (2.2-3.9) 07/07/18 06:31 Albumin/Globulin Ratio 1.1 (1.0-2.1) 07/07/18 06:31 Vitamin B12 283 pg/mL (239-931) 07/06/18 11:17 Stool Occult Blood Positive (NEGATIVE) H 07/06/18 08:35 Influenza Typ A,B (EIA) Negative for flu a/b (NEGATIVE) 07/05/18 15:35 Grp A Beta Strep Ag Negative (NEGATIVE) 07/05/18 15:35 Blood Type O POSITIVE 07/07/18 16:20 Blood Type Confirm O POSITIVE 07/05/18 19:10 Antibody Screen Negative 07/07/18 16:20 Crossmatch See Detail 07/07/18 16:20 BBK History Checked Patient has bt 07/07/18 16:20 Attending/Attestation - Attestation I have personally seen and examined this patient.: Yes I have fully participated in the care of the patient.: Yes I have reviewed all pertinent clinical information, including history, physical exam and plan: Yes Notes (Text): 07/09/18 17:53 Patient seen and examined with resident. Case discussed and agreed with assessment and plan. Patient discharged in stable condition.
[2018-07-10] MEDS ORDERED: Pantoprazole 40 mg EC Tab PO SCH (09:00)
== END 2018-07-09 13:51 | disposition home or self-care (01) | DRG 811 ==
LOC: H.ER 14:06 → H.ERHOLD 19:44 → H.TEL 22:34 → H.MEDSURG1 07-08 16:50
PROC: 30233N1 Transfusion of Nonautologous Red Blood Cells into Peripheral Vein, Percutaneous Approach (ICD-10-PCS; 2018-07-05)
PROC: 0DD58ZX Extraction of Esophagus, Via Natural or Artificial Opening Endoscopic, Diagnostic (ICD-10-PCS; 2018-07-09)
PROC: 0DJD8ZZ Inspection of Lower Intestinal Tract, Via Natural or Artificial Opening Endoscopic (ICD-10-PCS; 2018-07-09)
PROC: 0DD98ZX Extraction of Duodenum, Via Natural or Artificial Opening Endoscopic, Diagnostic (ICD-10-PCS; principal; 2018-07-09 09:30)
PROC: 0DD68ZX Extraction of Stomach, Via Natural or Artificial Opening Endoscopic, Diagnostic (ICD-10-PCS; 2018-07-09 09:30)
DX: D50.9 Iron deficiency anemia, unspecified (principal); I26.99 Other pulmonary embolism without acute cor pulmonale; J90 Pleural effusion, not elsewhere classified; J84.10 Pulmonary fibrosis, unspecified; K52.9 Noninfective gastroenteritis and colitis, unspecified; N28.1 Cyst of kidney, acquired; R79.1 Abnormal coagulation profile; Z80.0 Family history of malignant neoplasm of digestive organs; Z87.891 Personal history of nicotine dependence; E53.8 Deficiency of other specified B group vitamins; I10 Essential (primary) hypertension; K57.90 Diverticulosis of intestine, part unspecified, without perforation or abscess without bleeding; K64.1 Second degree hemorrhoids